=== PATIENT | female | born 1945 | race Caucasian/White ===

== ENCOUNTER → 2017-06-18 | Outpatient (CLI) | payer MEDICARE, SELFPAY | PROVIDERS: Visit Provider Nurse Practitioner Obstetrics & Gynecology | DX: Z12.31 Encounter for screening mammogram for malignant neoplasm of breast (principal) | CPT/HCPCS: 77067; G0202 ==

== ENCOUNTER 2017-08-04 13:00 | Observation (INO) | payer MEDICARE, SELFPAY ==
--- NOTE | 2017-08-04 | CA_ITS ---
PROCEDURE: 2-D M-mode and color Doppler study INDICATIONS FOR THE TEST: Chest pain COPD Heart Murmur+ Tobacco Smoking Palpitations Fatigue Syncope+ Edema Hypertension Diabetes Mellitus Rheumatic Fever SOB+PIMENTEL+Obesity+Hyperlipidemia+ Family History HD+ Additional History syncope PATIENT INFORMATION HEIGHT: 70 WEIGHT: 270 GENDER: Female B/P: 142/84 2-D/M-MODE INTERPRETATION: 2-D MEASUREMENTS OBSERVED VALUES IN CMS Right Ventricular Dimension (RVDd) 2.8 Interventricular Septum (Thickness)(IVsd) 1.2 Left Ventricular Internal Dimensions(LVIDd) 5.3 Left Ventricular Posterior Wall (Thickness)(LVPWd) 1.1 Aortic Root 3.4 Aortic Cusp Separation 2.1 Left Atrial Dimensions (LAD) 4.2 2D 1. Technically difficult study because of the patient's factor and poor acoustic windows 2. Left atrium is mildly enlarged, left ventricle is normal size, there is mild concentric left ventricular hypertrophy, visually estimated ejection fraction 50% with no obvious regional wall motion abnormality. 3. The right atrium is normal size, right ventricle is mildly enlarged with normal contractility. 4. The mitral and tricuspid valvular leaflets are minimally thickened. 5. The pulmonic valve is poorly visualized. 6. No significant pericardial effusion noted. DOPPLER INTERROGATION: Doppler interrogation of the aortic, mitral and tricuspid valvular presence of mild mitral and tricuspid regurgitation, tricuspid and jet velocity insufficient for calculation of the right ventricular systolic pressure, grade 1 diastolic dysfunction seen with tissue Doppler evidence of raised left atrial pressure. CONCLUSION: 1. Mildly enlarged left atrium, normal left ventricular size, visually estimated ejection fraction 50% with no obvious regional wall motion abnormality, there is mild concentric left ventricular hypertrophy present. Grade 1 diastolic dysfunction seen with tissue Doppler evidence of raised left atrial pressure. 2. Mild mitral and tricuspid regurgitation 3. No significant pericardial effusion noted.
[2017-08-04 13:04] VITALS: BP 136/73; PULSE 72; RESP 18; TEMP 36.8; O2SAT 95; BMI 38.7
--- NOTE | 2017-08-04 13:38 | HMH.EDSYNC ---
ED Disposition Clinical Impression: Syncope Qualifiers: Syncope type: unspecified Qualified Code(s): R55 - Syncope and collapse Disposition: Admitted As Inpatient Condition on Discharge: Good Time of Disposition: 16:09 - Critical Care Critical Care Time: No Attestation: On 08/04/17, the high probability of a clinically significant, sudden or life threatening deterioration of the following system(s) required my full and direct attention, intervention and personal management. The time I documented below is in addition to time spent performing reported procedures but includes the following listed in this critical care notation. Total Critical Care Time: 45 Vital system(s) involved:: Circulatory Failure, Central Nervous System My critical care processes included: Assessment & monitoring of V/S, Initial and Re-exams, Data Review/Interpretation, Coordinating Care, Medication Orders and management, Documentation Medical Decision Making - Medical Records Medical records reviewed: Yes: I reviewed the patient's medical records. Vital Signs: 08/04/17 13:04 08/04/17 15:01 08/04/17 16:36 Temperature 98.2 F 98.1 F Temperature Source Oral Oral Pulse Rate [Right Radial] 72 67 64 Respiratory Rate 18 20 18 Blood Pressure [Right Arm] 136/73 136/71 141/70 Blood Pressure Mean [Right Arm] 94 92 93 Blood Pressure Source [Right Arm] Automatic Cuff Automatic Cuff Blood Pressure Position [Right Arm] Supine Sitting 02 Sat by Pulse Oximetry 95 95 93 L Oxygen Delivery Method Room Air Room Air Room Air - Lab Data Lab results reviewed: Yes: I reviewed the patient's lab results. Lab Results 08/04/17 13:55: WBC 4.0 L, RBC 4.60, Hgb 13.5, Hct 41.8, MCV 91.0, MCH 29.3, MCHC 32.2, RDW 13.3, Plt Count 208, MPV 6.8 L, Neut % (Auto) 69.5, Lymph % (Auto) 17.4, [place] % (Auto) 8.8, Eos % (Auto) 3.9, Baso % (Auto) 0.5, Neut # (Auto) 2.8, Lymph # (Auto) 0.7, [place] # (Auto) 0.4, Eos # (Auto) 0.2, Baso # (Auto) 0.0 08/04/17 13:55: Sodium 143, Potassium 3.6, Chloride 106, Carbon Dioxide 29, Anion Gap 11.6, BUN 10, Creatinine 0.95, Estimated Creat Clear 100, Estimated GFR 58 L, Est GFR ( Amer) 70, Glucose 88, Calcium 8.5, Total Bilirubin 0.3, AST 28, ALT 29, Alkaline Phosphatase 80, Total Creatine Kinase 67, CK-MB (CK-2) 1.1, CK-MB (CK-2) Rel Index 1.6, Troponin I < 0.02, Total Protein 7.4, Albumin 3.7, Globulin 3.7 H, Albumin/Globulin Ratio 1.0 L, TSH 0.91 08/04/17 13:55: D-Dimer 233 08/04/17 13:55: B-Natriuretic Peptide 28 08/04/17 15:55: Urine Color Yellow, Urine Appearance Clear, Urine pH 6.5, Ur Specific [place] 1.015, Urine Protein Negative, Urine Glucose (UA) Negative, Urine Ketones Negative, Urine Blood Negative, Urine Nitrate Positive, Urine Bilirubin Negative, Urine Urobilinogen 0.2, Ur Leukocyte Esterase Negative, Urine RBC Occasional, Urine WBC 3-5, Ur Squamous Epith Cells 5-10, Urine Bacteria 4+ Result diagrams: 08/04/17 13:55 08/04/17 13:55 Orders (Tests/Meds): ED MEDICATIONS Discontinued Medications Generic Name Dose Route Start Last Admin Trade Name Freq PRN Reason Stop Dose Admin Sodium Chloride 1,000 mls @ 999 mls/hr 08/04/17 13:45 08/04/17 15:17 Sod Chloride 0.9% 1000ml Bag IV 08/04/17 14:45 999 mls/hr .[id number] GEORGETTE Administration ORDERS Category Date Time Status Urine Culture Stat Micro 08/04/17 15:55 Received - Radiology Data #1 Image(s): Chest Image Reviewed: Yes I reviewed the patient's radiology results Preliminary Findings: Normal/NAD - CT Data CT Scan: Head Time Received: 15:[address] Reviewed: Yes: I have reviewed the patient's CT results Preliminary Findings: Normal/NAD - ECG Data Tracing #1 I reviewed this ECG and interpreted as documented below: ECG normal with no acute: arrhythmias, ischemia, conduction abnormalities, chamber hypertrophy Normal Sinus Rhythm: Yes - Physician Consults Physician Consulted: Dr Larkin Time: 16:00 Reason -: Admission, Pt condition
--- NOTE | 2017-08-04 13:55 | CT_ITS ---
CT head/brain wo con HISTORY: Dizziness and syncope ITS.REASON: SYNCOPE ORDERING PHYSICIAN: Mukul Allen MD PATIENT AGE: 71 years COMPARISON: None TECHNIQUE: Axial images obtained without contrast. Brain and bone windows reviewed. FINDINGS: No midline shift, mass effect, intracranial hemorrhage, hydrocephalus, or extra-axial fluid collection is evident. There are involutional changes of age with mild brain volume loss and periventricular ischemic gliotic change. The calvarium has an unremarkable appearance. No mastoid effusion. Mild mucosal thickening left maxillary sinus. IMPRESSION: No acute intracranial findings.
[2017-08-04 14:09] LABS: Basophils % 0.5 % (0.1-2.0); Eosinophils # 0.2 K/mm3 (0.0-0.4); Eosinophils % 3.9 % (0.1-12.0); Hematocrit 41.8 % (37.0-47.0); Hemoglobin 13.5 g/dL (12.2-16.2); Lymphocytes # 0.7 K/mm3 (0.7-4.5); Lymphocytes % 17.4 K/mm3 (10-50); Mean Corpuscular HGB Conc 32.2 g/dL (31.8-35.4); Mean Corpuscular Hemoglobin 29.3 pg (27.0-31.2); Mean Platelet Volume 6.8 fl (7.4-10.4); Monocytes # 0.4 K/mm3 (0.1-1.0); Monocytes % 8.8 % (1.7-9.3); Neutrophils # 2.8 K/mm3 (1.8-7.8); Neutrophils % 69.5 % (37.0-80.0); Platelet Count 208 K/mm3 (142-424); Red Cell Distribution Width 13.3 % (11.5-17.5)
[2017-08-04 14:34] LABS: D-Dimer 233 (0-400)
[2017-08-04 14:38] LABS: Alanine Aminotransferase 29 U/L (12-78); Albumin Level 3.7 gm/dL (3.4-5.0); Alkaline Phosphatase 80 U/L (46-116); Anion Gap 11.6 mEq/L (5-15); Aspartate Amino Transferase 28 U/L (15-37); Bilirubin,Total 0.3 mg/dL (0.2-1.0); Blood Urea Nitrogen 10 mg/dL (7-18); CKMB Relative Index 1.6 U/L (0-4.0); Calcium 8.5 mg/dL (8.5-10.1); Carbon Dioxide 29 mmol/L (21.0-32.0); Chloride 106 mmol/L (98-107); Creatine Kinase 67 U/L (26-192); Creatine Kinase MB 1.1 mg/ml (0.0-3.6); Creatinine Clearance Estimated 100 mL/min (0-300); Creatinine,Serum 0.95 mg/dL (0.55-1.02); Estimated Glomerular Filt Rate 58 ml/min (>60); GFR (African American) 70 ML/MIN (>60); Globulin 3.7 gm/dl (1.3-3.2); Glucose 88 mg/dL (74-106); Potassium 3.6 mmoL/L (3.5-5.1); Sodium 143 mmol/L (136-145); Thyroid Stimulating Hormone 0.91 uIU/ml (0.358-3.740); Total Protein,Serum 7.4 gm/dL (6.4-8.2); Troponin I < 0.02 ng/ml (0.00-0.06)
[2017-08-04 15:01] VITALS: BP 136/71; PULSE 67; RESP 20; O2SAT 95
[2017-08-04 16:09] LABS: Microscopic, Urine URINE MICROSCOPIC (MICROSCOPIC)
[2017-08-04 16:12] LABS: Appearance,Urine CLEAR (Clear); Bilirubin,Urine Negative (Negative); Blood, Urine Negative (Negative); Color,Urine YELLOW (Yellow); Glucose,Urine (UA) Negative (Negative); Ketones,Urine Negative (Negative); Leukocyte Esterase,Urine Negative (Negative); Nitrate,Urine POSITIVE (Negative); PH,Urine 6.5 (5.0-8.5); Protein,Urine Negative (Negative); Specific Gravity, Urine 1.015 (1.005-1.030); Urobilinogen,Urine 0.2 EU/dl (0.2)
[2017-08-04 16:36] VITALS: BP 141/70; PULSE 64; RESP 18; TEMP 36.7; O2SAT 93; BMI 39.7
[2017-08-04 16:47] LABS: Bacteria,Urine 4+ /lpf; RBC,Urine Occasional #/hpf (0-3)
[2017-08-04 18:57] LABS: CKMB Relative Index 2.1 U/L (0-4.0); Creatine Kinase 72 U/L (26-192); Creatine Kinase MB 1.5 mg/ml (0.0-3.6); Troponin I < 0.02 ng/ml (0.00-0.06)
[2017-08-04 20:00] VITALS: BP 150/80; PULSE 71; RESP 20; TEMP 36.6; O2SAT 96
[2017-08-04 20:54] VITALS: BP 150/80; PULSE 71; RESP 14; TEMP 36.6
[2017-08-05] VITALS (28 sets, daily range): BP systolic 114–180; BP diastolic 59–104; PULSE 55–91; RESP 16–20; TEMP 36.6–36.9; O2SAT 93–100
--- NOTE | 2017-08-05 | IR_ITS ---
CARDIAC CATHETERIZATION DATE OF CATHETERIZATION:08/05/2017 1:07 PM PROCEDURES: 1. Right heart catheterization 2. Left heart catheterization 3. Left ventriculogram 4. Selective coronary angiogram INDICATION FOR TEST: 1. Congestive heart failure 2. Atrial fibrillation 3. Unstable angina Informed consent was obtained prior to the procedure. COMPLICATIONS: None ESTIMATED BLOOD LOSS: Less than 10 ml. TECHNIQUE: One percent lidocaine was used to anesthetize the right groin. The right femoral artery was accessed via the Seldinger technique. A 4-Venezuelan and 7 macanese sheath was placed in the right femoral artery and vein respectfully. The JR-4 and JL-4 catheter was also used to perform left heart catheterization, left ventriculography and selective coronary angiogram. At the end of the procedure the patient was transferred to the post-op holding area in stable condition for arterial sheath removal. ANGIOGRAPHIC RESULTS: 1. The left main artery normal 2. The left anterior descending artery has normal 3. The circumflex artery is non dominant and has normal 4. The right coronary artery normal 5. The BAGLEY ventriculogram reveals normal 65% The left ventricular end-diastolic pressure 25 mmHg HEMODYNAMICS: Right atrial pressure is 15 mm Hg. Pulmonary arterial pressure is 35/25 mm Hg. Pulmonary artery occlusion pressure is 23 mm Hg. SATURATIONS: RA is 83 %. PA is 83 %. IMPRESSION: 1. Normal coronary arteries 2. Normal ejection fraction 3. Mild pulmonary hypertension 4. Diastolic dysfunction 5. Biventricular congestive heart failure PLAN: 1. Diuresis as needed 2. Treatment of atrial fibrillation 3. Technical angulation for been high chads score
--- NOTE | 2017-08-05 07:28 | P.CONPHA_ITS ---
[facility] Pharmacy VTE Monitoring - Patient Demographics Admission date: 08/04/17 Report Date: 08/05/17 Time: 07:26 Allergies/Adverse Reactions: Patient Allergies erythromycin base Allergy (Mild, Verified 07/10/17 13:32) promethazine Allergy (Mild, Verified 07/10/17 13:32) Height: 1.78 m Weight: 125.645 kg Patient Problems: Current Active Problems Syncope (Acute) - VTE Risk Labs: VTE Related Lab Results Hgb 13.5 g/dL (12.2-16.2) 08/04/17 13:55 Hct 41.8 % (37.0-47.0) 08/04/17 13:55 Plt Count 208 K/mm3 (142-424) 08/04/17 13:55 BUN 10 mg/dL (7-18) 08/04/17 13:55 Creatinine 0.95 mg/dL (0.55-1.02) 08/04/17 13:55 Estimated Creat Clear 100 mL/min (0-300) 08/04/17 13:55 VTE Score: 3 VTE Risk Level: Low Risk Clinical Trial Participant: Yes - Prophylaxis VTE Prophylaxis Ordered?: Yes Types of VTE Prophylaxis: TEDS Knee High
--- NOTE | 2017-08-05 08:51 | HMH.HP ---
*Admission Date: 08/04/17 <WalterJennifer 08/05/17 09:21> *Chief complaint: Snycope <WalterJennifer 08/05/17 09:21> *History of present illness: Ms. Guerra is a 71-year-old female history of hypothyroidism, Sjogren syndrome and osteoarthritis who had a syncopal episode when at a restaurant eating lunch yesterday. Friends stated that she had no seizure activity but was out for about 10 minutes. She had no loss of bowel or bladder function. Patient denied shortness of breath and chest pain before, during or after the syncopal episode. She did state that she had a headache earlier in the morning. She denied nausea, vomiting, diarrhea, fever or any other upper respiratory symptoms. She was brought to [facility] emergency room via ambulance Evaluation in the emergency room CT of the head was found to be normal. She was admitted for further evaluation and treatment Patient states that she has had fainting episodes in the past mostly as a child. She has had no previous workup for these <Jennifer Walter 08/05/17 09:21> [facility] History Medical History: Reports:: Deep Vein Thrombosis, Osteoporosis Denies:: Anxiety, Arrhythmia, Atherosclerotic Heart Disease, Cancer, Cardiomyopathy, Congestive Heart Failure, Chronic Obstructive Pulmonary Disease (COPD), Coronary Artery Disease, Cerebrovascular Accident, Diabetes Mellitus Type 1, Diabetes Mellitus Type 2, Gastroesophageal Reflux Disease(GERD), Heart Murmur, Home Oxygen, Hypertension, Lung Disease, MRSA, Palpitations, Peripheral Vascular Disease, Renal Disease, Seizures, Supraventricular Tachycardia <Jennifer Walter 08/05/17 09:21> Other Medical History: Reports: Arthritis, Hypothyroidism, Thyroid Disease <Jennifer Walter 08/05/17 09:21> Comment: Sjogren syndrome, goiter, restless leg syndrome; has had pneumonia several times <Jennifer Walter 08/05/17 09:21> Other Surgeries: Yes: Diagnostic Lap, Hysterectomy-Partial <Jennifer Walter 08/05/17 09:21> Amputation: No <Jennifer Walter 08/05/17 09:21> Fractures: No <Jennifer Walter 08/05/17 09:21> - *Social History Educational Level: Completed High School <Jennifer Walter 08/05/17 09:21> Smoking Status: Never smoker <Jennifer Walter 08/05/17 09:21> Alcohol Intake: never <Jennifer Walter 08/05/17 09:21> Occupational Status: retired <Jennifer Walter 08/05/17 09:21> Housing: house <Jennifer Walter 08/05/17 09:21> Household Members: spouse <Jennifer Walter 08/05/17 09:21> - Psychiatric History Expresses thoughts of harming self/others: None <Jennifer Walter 08/05/17 09:21> Suicide Plan Description: No Plan <Jennifer Walter 08/05/17 09:21> *Family Hx:: Cancer, Coronary Artery Disease, no Diabetes <Jennifer Walter 08/05/17 09:21> Review of Systems - Constitutional Reports headache(s), Denies anorexia, Denies body ache(s), Denies chills, Denies fever(s), Denies lack of energy, Denies weakness <Jennifer Walter 08/05/17 09:21> - Eyes Reports dry eyes, Denies change in vision <Jennifer Walter 08/05/17 09:21> - ENT Reports dry mouth, Reports headache(s), Denies facial pain, Denies sore throat, Denies dizziness <Jennifer Walter 08/05/17 09:21> - *Cardiovascular Reports shortness of breath with activity, Reports fainting, Denies chest pain, Denies excessive sweating, Denies generalized swelling, Denies irregular heart rhythm, Denies leg swelling, Denies fast heart rate <Jennifer Walter 08/05/17 09:21> - *Respiratory Denies chest congestion, Denies cough, Denies shortness of breath, Denies coughing up blood, Denies wheezing <Jennifer Walter 08/05/17 09:21> - *Gastrointestinal Reports constipation, Denies abdominal pain, Denies belching, Denies bloating, Denies change in bowel habits, Denies change in stools, Denies heartburn, Denies vomiting blood, Denies nausea, Denies vomiting <WalterJennifer 08/05/17 09:21> - *Musculoskeletal Reports joint pain, Denies body aches <Jennifer Walter - 08/05/17 09:21> - *Neurolog
--- NOTE | 2017-08-05 08:54 | P.HP_ITS ---
*Admission Date: 08/04/17 <WalterJennifer 08/05/17 09:21> *Chief complaint: Snycope <WalterJennifer 08/05/17 09:21> *History of present illness: Ms. Guerra is a 71-year-old female history of hypothyroidism, Sjogren syndrome and osteoarthritis who had a syncopal episode when at a restaurant eating lunch yesterday. Friends stated that she had no seizure activity but was out for about 10 minutes. She had no loss of bowel or bladder function. Patient denied shortness of breath and chest pain before, during or after the syncopal episode. She did state that she had a headache earlier in the morning. She denied nausea, vomiting, diarrhea, fever or any other upper respiratory symptoms. She was brought to [facility] emergency room via ambulance Evaluation in the emergency room CT of the head was found to be normal. She was admitted for further evaluation and treatment Patient states that she has had fainting episodes in the past mostly as a child. She has had no previous workup for these <Jennifer Walter 08/05/17 09:21> [facility] History Medical History: Reports:: Deep Vein Thrombosis, Osteoporosis Denies:: Anxiety, Arrhythmia, Atherosclerotic Heart Disease, Cancer, Cardiomyopathy, Congestive Heart Failure, Chronic Obstructive Pulmonary Disease (COPD), Coronary Artery Disease, Cerebrovascular Accident, Diabetes Mellitus Type 1, Diabetes Mellitus Type 2, Gastroesophageal Reflux Disease(GERD), Heart Murmur, Home Oxygen, Hypertension, Lung Disease, MRSA, Palpitations, Peripheral Vascular Disease, Renal Disease, Seizures, Supraventricular Tachycardia < Jennifer Walter 08/05/17 09:21> Other Medical History: Reports: Arthritis, Hypothyroidism, Thyroid Disease < Jennifer Walter 08/05/17 09:21> Comment: Sjogren syndrome, goiter, restless leg syndrome; has had pneumonia several times <Jennifer Walter 08/05/17 09:21> Other Surgeries: Yes: Diagnostic Lap, Hysterectomy-Partial <Jennifer Walter 09:21> Amputation: No <Jennifer Walter 08/05/17 09:21> Fractures: No <Jennifer Walter 08/05/17 09:21> - *Social History Educational Level: Completed High School <Jenniefr Walter 08/05/17 09:21> Smoking Status: Never smoker <Jennifer Walter 08/05/17 09:21> Alcohol Intake: never <Jennifer Walter 08/05/17 09:21> Occupational Status: retired <Jennifer Walter 08/05/17 09:21> Housing: house <Jennifer Walter 08/05/17 09:21> Household Members: spouse <Jennifer Walter 08/05/17 09:21> - Psychiatric History Expresses thoughts of harming self/others: None <Jennifer Walter 08/05/17 09: 21> Suicide Plan Description: No Plan <Jennifer Walter 08/05/17 09:21> *Family Hx:: Cancer, Coronary Artery Disease, no Diabetes <Jennifer Walter 01/13 09:21> Review of Systems - Constitutional Reports headache(s), Denies anorexia, Denies body ache(s), Denies chills, Denies fever(s), Denies lack of energy, Denies weakness <WalterJennifer 08/05 09:21> - Eyes Reports dry eyes, Denies change in vision <Jennifer Walter 08/05/17 09:21> - ENT Reports dry mouth, Reports headache(s), Denies facial pain, Denies sore throat, Denies dizziness <Jennifer Walter 08/05/17 09:21> - *Cardiovascular Reports shortness of breath with activity, Reports fainting, Denies chest pain, Denies excessive sweating, Denies generalized swelling, Denies irregular heart rhythm, Denies leg swelling, Denies fast heart rate <Jennifer Walter 08/05/17 09:21> - *Respiratory Denies chest congestion, Denies cough, Denies shortness of breath, Denies coughing up blood, Denies wheezing <Jennifer Walter 08/05/17 09:21> - *Gastrointestinal Reports constipation, Denies abdominal p
--- NOTE | 2017-08-05 09:19 | HMH.CARDCON2 ---
History of Present Illness Consult date: 08/05/17 Requesting physician: Tyson Bhakta Chief complaint: passed out History of present illness: 71-year-old white female with history of hypertension and Sjogren's syndrome admitted for episode of syncope yesterday patient was at a local restaurant and after eating she developed sudden lightheadedness and dizziness to the point that she laid her head down and then states she apparently passed out. Reportedly off for about 10 minutes all total. She did have some vomiting afterward. Patient denies any palpitations or chest pains prior to her episode of passing out. She relates a long history of intermittent episodes of this dating back to childhood. She seems to equate them with long periods of not eating or needing something sweet to prevent it from occurring. She has never had any workup for this in the past. Of note she has had some declining exertional capacity over the last couple years with associated discomfort in the upper back and neck area with exertion. Patient denies any history of diabetes or tobacco use. She is on low-dose hydrochlorothiazide for her hypertension. 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 EKG here shows sinus rhythm without acute changes. Troponins have returned normal. Cardiology consulted for evaluation recommendations. Review of Systems - ENT Reports dry mouth - *Respiratory Reports cough, Reports shortness of breath with activity - *Musculoskeletal Reports stiffness - *Neurologic Reports headache(s), Reports fainting, Reports other (Syncope), Denies abnormal walking, Denies abnormal hearing, Denies abnormal movements, Denies abnormal speech, Denies behavioral changes, Denies confusion, Denies seizure-like activity, Denies dizziness, Denies tingling/numbness/burning sensations, Denies restless legs, Denies seizure-like activity, Denies tremor(s), Denies dizziness, Denies weakness [facility] History Medical History: Reports:: Deep Vein Thrombosis, Osteoporosis Denies:: Anxiety, Arrhythmia, Atherosclerotic Heart Disease, Cancer, Cardiomyopathy, Congestive Heart Failure, Chronic Obstructive Pulmonary Disease (COPD), Coronary Artery Disease, Cerebrovascular Accident, Diabetes Mellitus Type 1, Diabetes Mellitus Type 2, Gastroesophageal Reflux Disease(GERD), Heart Murmur, Home Oxygen, Hypertension, Lung Disease, MRSA, Palpitations, Peripheral Vascular Disease, Renal Disease, Seizures, Supraventricular Tachycardia Other Medical History: Reports: Arthritis, Hypothyroidism, Osteoporosis, Thyroid Disease Other Surgeries: Yes: Diagnostic Lap, Hysterectomy-Partial Amputation: No Fractures: No - *Social History Educational Level: Completed High School Smoking Status: Never smoker Alcohol Intake: never Occupational Status: retired Housing: house Household Members: spouse - Psychiatric History Expresses thoughts of harming self/others: None Suicide Plan Description: No Plan Pschychiatric History:: Denies:: Anxiety *Family Hx:: Cancer, Coronary Artery Disease, no Diabetes Meds Home Medications Medication Instructions Recorded Confirmed Type Hydroxychloroquine Sulfate 200 mg PO DAILY 08/05/17 08/05/17 History [Plaquenil] Levothyroxine Sodium 175 mcg PO DAILY 08/05/17 08/05/17 History [Levothyroxine 175mcg (0.175mg) Tab] Mirabegron [Myrbetriq] 25 mg PO DAILY 08/05/17 08/05/17 History Sertraline HCl [Zoloft 100mg 100 mg PO DAILY 08/05/17 08/05/17 History tablet] hydroCHLOROthiazide [HCTZ 25mg 12.5 mg PO DAILY 08/05/17 08/05/17 History tab] Allergies Allergy/AdvReac Type Severity Reaction Status Date / Time erythromycin base Allergy Mild Verified 07/10/17 13:32 promethazine Allergy Mild Verified 07/10/17 13:32 Exam Vital signs and Labs for Last 24 Hours:
--- NOTE | 2017-08-05 09:23 | P.CONS_ITS ---
History of Present Illness Consult date: 08/05/17 Requesting physician: Tyson Bhakta Chief complaint: passed out History of present illness: 71-year-old white female with history of hypertension and Sjogren's syndrome admitted for episode of syncope yesterday patient was at a local restaurant and after eating she developed sudden lightheadedness and dizziness to the point that she laid her head down and then states she apparently passed out. Reportedly off for about 10 minutes all total. She did have some vomiting afterward. Patient denies any palpitations or chest pains prior to her episode of passing out. She relates a long history of intermittent episodes of this dating back to childhood. She seems to equate them with long periods of not eating or needing something sweet to prevent it from occurring. She has never had any workup for this in the past. Of note she has had some declining exertional capacity over the last couple years with associated discomfort in the upper back and neck area with exertion. Patient denies any history of diabetes or tobacco use. She is on low-dose hydrochlorothiazide for her hypertension. 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 EKG here shows sinus rhythm without acute changes. Troponins have returned normal. Cardiology consulted for evaluation recommendations. Review of Systems - ENT Reports dry mouth - *Respiratory Reports cough, Reports shortness of breath with activity - *Musculoskeletal Reports stiffness - *Neurologic Reports headache(s), Reports fainting, Reports other (Syncope), Denies abnormal walking, Denies abnormal hearing, Denies abnormal movements, Denies abnormal speech, Denies behavioral changes, Denies confusion, Denies seizure-like activity, Denies dizziness, Denies tingling/numbness/burning sensations, Denies restless legs, Denies seizure-like activity, Denies tremor(s), Denies dizziness , Denies weakness [facility] History Medical History: Reports:: Deep Vein Thrombosis, Osteoporosis Denies:: Anxiety, Arrhythmia, Atherosclerotic Heart Disease, Cancer, Cardiomyopathy, Congestive Heart Failure, Chronic Obstructive Pulmonary Disease (COPD), Coronary Artery Disease, Cerebrovascular Accident, Diabetes Mellitus Type 1, Diabetes Mellitus Type 2, Gastroesophageal Reflux Disease(GERD), Heart Murmur, Home Oxygen, Hypertension, Lung Disease, MRSA, Palpitations, Peripheral Vascular Disease, Renal Disease, Seizures, Supraventricular Tachycardia Other Medical History: Reports: Arthritis, Hypothyroidism, Osteoporosis, Thyroid Disease Other Surgeries: Yes: Diagnostic Lap, Hysterectomy-Partial Amputation: No Fractures: No - *Social History Educational Level: Completed High School Smoking Status: Never smoker Alcohol Intake: never Occupational Status: retired Housing: house Household Members: spouse - Psychiatric History Expresses thoughts of harming self/others: None Suicide Plan Description: No Plan Pschychiatric History:: Denies:: Anxiety *Family Hx:: Cancer, Coronary Artery Disease, no Diabetes Meds Home Medications Medication Instructions Recorded Confirmed Type Hydroxychloroquine Sulfate 200 mg PO DAILY 08/05/17 08/05/17 History [Plaquenil] Levothyroxine Sodium 175 mcg PO DAILY 08/05/17 08/05/17 History [Levothyroxine 175mcg (0.175mg) Tab] Mirabegron [Myrbetriq] 25 mg PO DAILY 08/05/17 08/05/17 History Sertraline HCl [Zolof
--- NOTE | 2017-08-05 11:53 | PC.NURSE ---
PT IS IN CATH AT THIS TIME.
--- NOTE | 2017-08-05 13:42 | PC.NURSE ---
Pt left floor at
--- NOTE | 2017-08-05 13:43 | PC.NURSE ---
Pt is back on floor after having procedure in bobcat driver/labor. Pt is a/o, vs stable, no complaints voiced to nurse. Pt's IJ and wrist site are c/d/i. Nurse was told that no interventions were needed during procedure. Pt is in bed, call light within reach, visitors at bedside. Will continue to [facility].
[2017-08-05 13:48] LABS: CATHL Arterial O2 SAT 83 % (90-100); CATHL Venous O2 SAT 83 % (75-80)
--- NOTE | 2017-08-05 19:20 | PC.NURSE ---
PT FULL CODE, REPORT FROM ANIKA
--- NOTE | 2017-08-05 19:30 | PC.NURSE ---
Pt tolerated well this shift, pt has had no complaints. Post op VS being monitored, pt tolerating well. IJ and right wrist sites look well, tegaderm and 2x2s in place, CDI. Pt is in bed, call light within reach, will continue to monitor.
[2017-08-06] VITALS: BP 121/64; PULSE 60; RESP 20; TEMP 37.1; O2SAT 93
[2017-08-06 02:00] VITALS: PULSE 67
[2017-08-06 04:00] VITALS: BP 116/58; PULSE 65; PULSE 69; RESP 20; TEMP 36.8; O2SAT 90
--- NOTE | 2017-08-06 05:07 | PC.NURSE ---
PT ALERT AND ORIENTED. SLEPT MOST ALL OF SHIFT OF THIS TIME. NO C/O PAIN OR DISCOMFORT REPORTED. NO SYNCOPE EPISODES. IV SECURE AND PATENT, SALINE LOCKED. DRESSING ON JUGULAR PLACED YESTERDAY IN CARDIAC CATH, CAME MOST ALL WAY OFF, REST REMOVED. NOTHING SEEN. AREA INTACT ON DRAINAGE. RT RADIAL STILL ON ARM BOARD TO ASSIST PT IN REMEMBERING TO LIMIT USE. NO AM LABS ORDERED. PT STABLE. WILL CONTINUE TO MONITOR. REPORT TO BE GIVEN TO ONCOMING NURSE.
[2017-08-06 07:11] LABS: Anion Gap 11.1 mEq/L (5-15); Blood Urea Nitrogen 19 mg/dL (7-18); Carbon Dioxide 30 mmol/L (21.0-32.0); Chloride 106 mmol/L (98-107); Creatinine Clearance Estimated 98 mL/min (0-300); Creatinine,Serum 1.04 mg/dL (0.55-1.02); Estimated Glomerular Filt Rate 52 ml/min (>60); GFR (African American) 63 ML/MIN (>60); Glucose 89 mg/dL (74-106); Potassium 4.1 mmoL/L (3.5-5.1); Sodium 143 mmol/L (136-145)
[2017-08-06 07:40] VITALS: BP 128/77; PULSE 72; RESP 20; TEMP 36.8; O2SAT 96
[2017-08-06 08:00] VITALS: PULSE 90
--- NOTE | 2017-08-06 08:12 | HMH.ACPN2 ---
<Marcelina Vanegas - Last Filed: 08/06/17 08:12> Internal Medicine - PN: Subj *Date: 08/06/17 *Time: 08:12 Interval history: Patient has done well throughout the night. She states she has not felt any heart palpitations. She slept great and ate all of her breakfast this morning. Her heart cath showed normal coronaries but elevated right heart pressures. She was started on lasix for diastolic dysfunction/pulmonary hypertension along with metoprolol and Xarelto for the paroxysmal A. fib/flutter by cardiology. Exam Vital signs and Labs for Last 24 Hours: Temp Pulse Resp BP Pulse Ox 98.2 F 72 20 128/77 96 08/06/17 07:40 08/06/17 07:40 08/06/17 07:40 08/06/17 07:40 08/06/17 07:40 Laboratory Results - last 24 hr 08/05/17 13:00: ABG O2 Sat (Measured) 83 L, POC VBG O2 Sat ([place]) 83 H 08/06/17 06:15: Sodium 143, Potassium 4.1, Chloride 106, Carbon Dioxide 30, Anion Gap 11.1, BUN 19 H D, Creatinine 1.04 H, Estimated Creat Clear 98, Estimated GFR 52 L, Est GFR ( Amer) 63, Glucose 89 I & O for Last 24 hours: Intake & Output 08/03/17 08/04/17 08/05/17 08/06/17 11:59 11:59 11:59 11:59 Intake Total 1500 / 1500 Balance 1500 / 1500 Weight 277 lb - Constitutional no acute distress - *Routine Respiratory Exam Present: CTA bilaterally - *Routine Cardiovascular Exam Present: RRR - *Routine Abdominal Exam Present: soft, normoactive bowel sounds. Absent: tenderness - *Routine Extremities Exam Absent: edema Assessment and Plan (1) Syncope Current visit: Yes Status: Acute Qualifiers: Syncope type: unspecified Qualified Code(s): R55 - Syncope and collapse Category: Medical Code(s): R55 - Syncope and collapse (2) Sjogrens syndrome Current visit: Yes Status: Chronic Category: Medical Code(s): M35.00 - Sicca syndrome, unspecified (3) Hypothyroidism Current visit: Yes Status: Chronic Category: Medical Code(s): E03.9 - Hypothyroidism, unspecified (4) Hypertension Current visit: Yes Status: Acute Category: Medical Code(s): I10 - Essential (primary) hypertension (5) Obesity (BMI 35.0-39.9 without comorbidity) Current visit: Yes Status: Acute Category: Medical Code(s): E66.9 - Obesity, unspecified (6) Paroxysmal SVT (supraventricular tachycardia) Current visit: Yes Status: Acute Category: Medical Code(s): I47.1 - Supraventricular tachycardia - Assessment and plan all Dx Assessment and Plan for all problems:: Patient doing well today. Cardiology has not seen patient yet. Will discuss further care with Dr. Bhakta. <Tyson Bhakta - Last Filed: 08/06/17 08:39> Internal Medicine - PN: Subj *Date: 08/06/17 *Time: 08:38 Exam Vital signs and Labs for Last 24 Hours: Temp Pulse Resp BP Pulse Ox 98.2 F 72 20 128/77 96 08/06/17 07:40 08/06/17 07:40 08/06/17 07:40 08/06/17 07:40 08/06/17 07:40 Laboratory Results - last 24 hr 08/05/17 13:00: ABG O2 Sat (Measured) 83 L, POC VBG O2 Sat ([place]) 83 H 08/06/17 06:15: Sodium 143, Potassium 4.1, Chloride 106, Carbon Dioxide 30, Anion Gap 11.1, BUN 19 H D, Creatinine 1.04 H, Estimated Creat Clear 98, Estimated GFR 52 L, Est GFR ( Amer) 63, Glucose 89 I & O for Last 24 hours: Intake & Output 08/03/17 08/04/17 08/05/17 08/06/17 11:59 11:59 11:59 11:59 Intake Total 1500 / 1500 Balance 1500 / 1500 Weight 277 lb Assessment and Plan (1) Syncope Current visit: Yes Status: Acute Qualifiers: Syncope type: unspecified Qualified Code(s): R55 - Syncope and collapse Category: Medical Code(s): R55 - Syncope and collapse (2) Sjogrens syndrome Current visit: Yes Status: Chronic Category: Medical Code(s): M35.00 - Sicca syndrome, unspecified (3) Hypothyroidism Current visit: Yes Status: Chronic Category: Medical Code(s): E03.9 - Hypothyroidism, unspecified (4) Hypertension Current visit: Yes S
--- NOTE | 2017-08-06 09:42 | P.PN_ITS ---
Subjective Date: 08/06/17 Time: 08:45 Principal diagnosis: Syncope Interval history: 71 yo WF in bed in NAD. Tolerating new meds. Ready to go home. No further episodes of syncope. No further arrhythmias on telemetry. Review of Systems - *Cardiovascular Denies chest pain - *Respiratory Denies shortness of breath - *Neurologic Reports headache(s), Reports fainting, Reports other (Syncope), Denies abnormal walking, Denies abnormal hearing, Denies abnormal movements, Denies abnormal speech, Denies behavioral changes, Denies confusion, Denies seizure-like activity, Denies dizziness, Denies tingling/numbness/burning sensations, Denies restless legs, Denies seizure-like activity, Denies tremor(s), Denies dizziness , Denies weakness Meds Home Medications Medication Instructions Recorded Confirmed Type Hydroxychloroquine Sulfate 200 mg PO DAILY 08/05/17 08/05/17 History [Plaquenil] Levothyroxine Sodium 175 mcg PO DAILY 08/05/17 08/05/17 History [Levothyroxine 175mcg (0.175mg) Tab] Mirabegron [Myrbetriq] 25 mg PO DAILY 08/05/17 08/05/17 History Sertraline HCl [Zoloft 100mg 100 mg PO DAILY 08/05/17 08/05/17 History tablet] hydroCHLOROthiazide [HCTZ 25mg 12.5 mg PO DAILY 08/05/17 08/05/17 History tab] Allergies Allergy/AdvReac Type Severity Reaction Status Date / Time erythromycin base Allergy Mild Verified 07/10/17 13:32 promethazine Allergy Mild Verified 07/10/17 13:32 Exam Vital signs and Labs for Last 24 Hours: Temp Pulse Resp BP Pulse Ox 98.2 F 72 20 128/77 96 08/06/17 07:40 08/06/17 07:40 08/06/17 07:40 08/06/17 07:40 08/06/17 07:40 Laboratory Results - last 24 hr 08/05/17 13:00: ABG O2 Sat (Measured) 83 L, POC VBG O2 Sat ([place]) 83 H 08/06/17 06:15: Sodium 143, Potassium 4.1, Chloride 106, Carbon Dioxide 30, Anion Gap 11.1, BUN 19 H D, Creatinine 1.04 H, Estimated Creat Clear 98, Estimated GFR 52 L, Est GFR ( Amer) 63, Glucose 89 I & O for Last 24 hours: Intake & Output 08/03/17 08/04/17 08/05/17 08/06/17 11:59 11:59 11:59 11:59 Intake Total 1500 / 1500 Balance 1500 / 1500 Weight 277 lb - *Routine Respiratory Exam Present: CTA bilaterally - *Routine Cardiovascular Exam Present: RRR Plan - Patient/Caregiver Discharge Instructions Additional Instructions: OK for discharge home on metoprolol and Xarelto. Follow up next week. Patient Instructions: DI for Atrial Fibrillation, DI for Urinary Tract Infection (UTI) - Follow Up Plan Follow up with: Tyson Bhakta MD [Primary Care Provider] - 2 weeks Ky Maria MD [Staff Physician] - 1 week
--- NOTE | 2017-08-11 14:43 | HMH.DCSUM ---
General - General Admission date: 08/04/17 Discharge date: 08/06/17 HPI HPI: Ms. Guerra is a 71-year-old female history of hypothyroidism, Sjogren syndrome and osteoarthritis who had a syncopal episode when at a restaurant eating lunch yesterday. Friends stated that she had no seizure activity but was out for about 10 minutes. She had no loss of bowel or bladder function. Patient denied shortness of breath and chest pain before, during or after the syncopal episode. She did state that she had a headache earlier in the morning. She denied nausea, vomiting, diarrhea, fever or any other upper respiratory symptoms. She was brought to [facility] emergency room via ambulance Evaluation in the emergency room CT of the head was found to be normal. She was admitted for further evaluation and treatment. Patient states that she has had fainting episodes in the past mostly as a child. She has had no previous workup for these Objective Vital signs: Temp Pulse Resp BP Pulse Ox 98.2 F 90 20 128/77 96 08/06/17 07:40 08/06/17 08:00 08/06/17 07:40 08/06/17 07:40 08/06/17 07:40 Narrative: - Constitutional no acute distress Comments: Conversant - *Routine HEENT Exam Head: Present: normocephalic, atraumatic. Absent: tenderness of temporal artery, facial swelling Eye: Present: EOMI, PERRL, normal accommodation. Absent: scleral injection, conjunctivae pink ENT: Present: mucous membranes dry. Absent: dentition normal - *Routine Neck Exam Present: supple, full ROM, tenderness (Right posterior). Absent: carotid bruit, lymphadenopathy, thyromegaly, swelling - *Routine Respiratory Exam Present: CTA bilaterally (A and P) - *Routine Cardiovascular Exam Present: RRR. Absent: murmur, gallop - *Routine Abdominal Exam Present: soft, normoactive bowel sounds. Absent: tenderness, distended, guarding - *Routine Extremities Exam Present: pulses intact. Absent: edema, calf tenderness, tenderness - *Routine Neurological Exam Present: alert, oriented X3, CN II-XII intact, moving all extremities, normal tone, normal speech. Absent: sensory deficit, motor deficit, pronator drift, altered mental status - Routine Psychiatric Exam Present: normal affect, normal thought process, cooperative, good insight, good judgment. Absent: depressed, anxious Hospital Course Hospital Course: The patient was placed on telemetry. Cardiology was consulted. The patient's telemetry revealed paroxysmal episodes of NSVT at approximately 150 bpm. In light of the patient's history of syncope and the arrhythmia noted on telemetry, cardiology proceeded with a right and left heart catheterization. Her heart cath showed normal coronaries but elevated right heart pressures. She was started on lasix for diastolic dysfunction/pulmonary hypertension along with metoprolol and Xarelto for the paroxysmal A. fib/flutter in light of CHADS-VASc score of at least 3. She did well throughout the rest of her stay and had no further episodes. She was stable to be discharged home. DS: Diagnosis - Discharge Diagnosis (1) Syncope Status: Acute (2) Atrial fibrillation Status: Acute (3) Sjogrens syndrome Status: Chronic (4) Hypothyroidism Status: Chronic (5) Hypertension Status: Acute (6) Obesity (BMI 35.0-39.9 without comorbidity) Status: Acute Discharge Plan - Patient Discharge Instructions ACTIVITY: Continue current activity DIET: continue same diet Additional Instructions: OK for discharge home on metoprolol and Xarelto. Follow up next week. Patient Instructions: DI for Atrial Fibrillation, DI for Urinary Tract Infection (UTI) - Follow up Plan Follow up with: Tyson Bhakta MD [Primary Care Provider] - 2 weeks Ky Maria MD [Staff Physician] - 1 week Disposition: Home, Self-Skilled Nursing Medications: Home Medications Medication Instructions Rec
--- NOTE | 2017-08-11 14:49 | P.DS_ITS ---
General - General Admission date: 08/04/17 Discharge date: 08/06/17 HPI HPI: Ms. Guerra is a 71-year-old female history of hypothyroidism, Sjogren syndrome and osteoarthritis who had a syncopal episode when at a restaurant eating lunch yesterday. Friends stated that she had no seizure activity but was out for about 10 minutes. She had no loss of bowel or bladder function. Patient denied shortness of breath and chest pain before, during or after the syncopal episode. She did state that she had a headache earlier in the morning. She denied nausea, vomiting, diarrhea, fever or any other upper respiratory symptoms. She was brought to [facility] emergency room via ambulance Evaluation in the emergency room CT of the head was found to be normal. She was admitted for further evaluation and treatment. Patient states that she has had fainting episodes in the past mostly as a child. She has had no previous workup for these Objective Vital signs: Temp Pulse Resp BP Pulse Ox 98.2 F 90 20 128/77 96 08/06/17 07:40 08/06/17 08:00 08/06/17 07:40 08/06/17 07:40 08/06/17 07:40 Narrative: - Constitutional no acute distress Comments: Conversant - *Routine HEENT Exam Head: Present: normocephalic, atraumatic. Absent: tenderness of temporal artery , facial swelling Eye: Present: EOMI, PERRL, normal accommodation. Absent: scleral injection, conjunctivae pink ENT: Present: mucous membranes dry. Absent: dentition normal - *Routine Neck Exam Present: supple, full ROM, tenderness (Right posterior). Absent: carotid bruit , lymphadenopathy, thyromegaly, swelling - *Routine Respiratory Exam Present: CTA bilaterally (A and P) - *Routine Cardiovascular Exam Present: RRR. Absent: murmur, gallop - *Routine Abdominal Exam Present: soft, normoactive bowel sounds. Absent: tenderness, distended, guarding - *Routine Extremities Exam Present: pulses intact. Absent: edema, calf tenderness, tenderness - *Routine Neurological Exam Present: alert, oriented X3, CN II-XII intact, moving all extremities, normal tone, normal speech. Absent: sensory deficit, motor deficit, pronator drift, altered mental status - Routine Psychiatric Exam Present: normal affect, normal thought process, cooperative, good insight, good judgment. Absent: depressed, anxious Hospital Course Hospital Course: The patient was placed on telemetry. Cardiology was consulted. The patient's telemetry revealed paroxysmal episodes of NSVT at approximately 150 bpm. In light of the patient's history of syncope and the arrhythmia noted on telemetry , cardiology proceeded with a right and left heart catheterization. Her heart cath showed normal coronaries but elevated right heart pressures. She was started on lasix for diastolic dysfunction/pulmonary hypertension along with metoprolol and Xarelto for the paroxysmal A. fib/flutter in light of CHADS-VASc score of at least 3. She did well throughout the rest of her stay and had no further episodes. She was stable to be discharged home. DS: Diagnosis - Discharge Diagnosis (1) Syncope Status: Acute (2) Atrial fibrillation Status: Acute (3) Sjogrens syndrome Status: Chronic (4) Hypothyroidism Status: Chronic (5) Hypertension Status: Acute (6) Obesity (BMI 35.0-39.9 without comorbidity) Status: Acute Discharge Plan - Patient Discharge Instructions ACTIVITY: Urvashi
== END 2017-08-06 13:20 | disposition home or self-care (01) ==
LOC: ER 16:09 → 2ND 16:17
PROVIDERS: Internal Medicine; Admitting Provider Family Medicine; Emergency Provider Emergency Medicine; Family Provider Family Medicine; PCP Family Medicine; Visit Provider Family Medicine
DX: I25.110 Atherosclerotic heart disease of native coronary artery with unstable angina pectoris; I48.2 Chronic atrial fibrillation; I50.30 Unspecified diastolic (congestive) heart failure; I10 Essential (primary) hypertension; N39.0 Urinary tract infection, site not specified; E03.9 Hypothyroidism, unspecified; M35.00 Sjogren syndrome, unspecified; I50.82 Biventricular heart failure; I27.20 Pulmonary hypertension, unspecified
CPT/HCPCS: 36415; 70450; 80048; 80053; 81001; 82550; 82553; 82810; 83880; 84443; 84484; 85025; 85378; 87086; 87088; 87186; 93005; 93306; 93460; 96365; 99152; 99153; 99281; 99282; C1725; C1769; C1894; G0378; J1644; Q9967

== ENCOUNTER → 2017-08-13 14:59 | Outpatient (CLI) | payer MEDICARE, SELFPAY | PROVIDERS: PCP Family Medicine; Visit Provider Internal Medicine Cardiovascular Disease | DX: R55 Syncope and collapse (principal); M35.00 Sjogren syndrome, unspecified; E03.9 Hypothyroidism, unspecified; I10 Essential (primary) hypertension; E66.9 Obesity, unspecified; I47.1 Supraventricular tachycardia; N39.0 Urinary tract infection, site not specified; B96.1 Klebsiella pneumoniae [K. pneumoniae] as the cause of diseases classified elsewhere; I48.91 Unspecified atrial fibrillation | CPT/HCPCS: 93225 ==

== ENCOUNTER 2017-08-24 10:08 | Day surgery (SDC) | payer MEDICARE, SELFPAY ==
[2017-08-18 15:58] VITALS: BMI 38.7
[2017-08-24] VITALS (7 sets, daily range): BP systolic 126–150; BP diastolic 45–89; PULSE 66–71; RESP 16–20; TEMP 36.3–36.4; O2SAT 95–98
--- NOTE | 2017-08-24 10:47 | HMH.ANESCL ---
[facility] Anesthesia Checklist - Patient Identification Patient Identification: Arm Band - Structural Data Admitted From: Home Planned Operative Procedure/s: colonoscopy Consent for Planned Operative Procedure(s) Verified: Yes Verified Documents: Surgical Consent, History and Physical - NPO Status Verified Time NPO: 00:00 - Additional verifications Anesthesia Reactions: No - Airway Assessment C-Spine Mobility Assessed: Yes (mp2) TMJ Mobility Assessed: Yes Dentition: Good Dentition - Neurological Assessment Level of Consciousness: Awake, Alert - Anesthesia Plan Anesthesia Risk discussed: Yes Anesthesia Plan: Verified ASA Class: III Anesthesia Type: MAC [facility] Anesthesia HX Medical History: Reports:: Atrial Fibrillation (ON XERALTO- OFF X2 DAYS), Deep Vein Thrombosis, Hyperlipidemia, Hypertension, Osteoporosis Denies:: Anxiety, Arrhythmia, Atherosclerotic Heart Disease, Cancer, Cardiomyopathy, Congestive Heart Failure, Chronic Obstructive Pulmonary Disease (COPD), Coronary Artery Disease, Cerebrovascular Accident, Diabetes Mellitus Type 1, Diabetes Mellitus Type 2, Gastroesophageal Reflux Disease(GERD), Heart Murmur, Home Oxygen, Internal Pacemaker, Lung Disease, MRSA, Palpitations, Peripheral Vascular Disease, Renal Disease, Seizures, Supraventricular Tachycardia Other Medical History: Reports: Arthritis, Hypothyroidism, Osteoporosis, Thyroid Disease Laterality Cases: Bilateral: Breast Biopsy Other Surgeries: Yes: Cardiac Catheterization, Diagnostic Lap, Hysterectomy-Partial. No: Pacemaker Amputation: No Fractures: No *Family Hx:: Cancer, Coronary Artery Disease, Heart Attack
--- NOTE | 2017-08-24 12:04 | HMH.PROC ---
[facility] Procedure Note Procedure Note:: Colonoscopy Procedure Report: Colonoscopy with submucosal injection of Eleview, snare cautery and cold snare polypectomy Endoscopist: Jude Hernandez II, MD Referring physician: Tyson Bhakta MD Date of Procedure: August 24, 2017 Equipment: Olympus 180 variable stiffness pediatric colonoscope Sedation: MAC sedation Indication: Mrs. Guerra is a 71-year-old female who is here for follow-up screening/surveillance colonoscopy. Her last colonoscopy 10 years ago (Dr. Jay Jay Urias) was normal. The patient does state that her mother had colon cancer at the age of 67. She reports no abdominal pain, weight loss, change in her bowel habits or rectal bleeding. She does get some constipation with the use of calcium. Procedure: Prior to the procedure, a history and physical exam was performed, and patient's medications and allergies were reviewed. The risks, benefits and alternatives of the sedation and procedure were discussed with the patient. All questions were answered and informed consent was obtained. The patient was brought to the procedure room. Patient identification and proposed procedure were verified by the physician and the nurse. The patient was placed in a left lateral decubitus position and the scope was passed under direct vision. Throughout the procedure, the patient's blood pressure, pulse, and oxygen saturations were monitored continuously. The colonoscopy was accomplished without difficulty. The patient tolerated the procedure well. Findings: On digital rectal examination there was normal rectal tone. There were no external hemorrhoids. The colonoscope was introduced through the anal canal to the rectum and advanced to the cecum. The ileocecal valve and appendiceal orifice were identified. The scope was advanced a short distance into the ileum which appeared grossly normal. The scope was then withdrawn into the colon. The cecum and ascending colon were normal. At the hepatic flexure was a elongated laterally spreading granular polyp that was very sessile and covered to folds/2 haustral folds. The base of this was injected with Eleview 10 mL. The width of the polyp was approximately 32 mm with 15 mm depth. This was removed with snare cautery and cold snare polypectomy. After complete excision, soft coagulation was used to coat the sides and the site to prevent residual regrowth. There was a second adjacent polyp in the transverse colon. There was a third polyp removed via cold snare polypectomy in the sigmoid colon. Upon retroflexion within the rectum there were grade 1 internal hemorrhoids. Impression: 1. Large flat/sessile hepatic flexure polyp (granular laterally spreading 32 x 15 mm polyp) status post submucosal injection and snare cautery piecemeal removal 2. 2 additional diminutive colon polyps 3. Grade 1 internal hemorrhoids Plan: I will follow-up the polyp histology and recommend repeat screening/surveillance colonoscopy in 6 months to evaluate the site and ensure that there is no residual or recurrence. I will discuss the findings with the patient and family. I would recommend that she have her siblings and children screened.
--- NOTE | 2017-08-24 12:08 | P.PCN_ITS ---
[facility] Procedure Note Procedure Note:: Colonoscopy Procedure Report: Colonoscopy with submucosal injection of Eleview, snare cautery and cold snare polypectomy Endoscopist: Jude Hernandez II, MD Referring physician: Tyson Bhakta MD Date of Procedure: August 24, 2017 Equipment: Olympus 180 variable stiffness pediatric colonoscope Sedation: MAC sedation Indication: Mrs. Guerra is a 71-year-old female who is here for follow-up screening/surveillance colonoscopy. Her last colonoscopy 10 years ago (Dr. Jay Jay Urias) was normal. The patient does state that her mother had colon cancer at the age of 67. She reports no abdominal pain, weight loss, change in her bowel habits or rectal bleeding. She does get some constipation with the use of calcium. Procedure: Prior to the procedure, a history and physical exam was performed, and patient' s medications and allergies were reviewed. The risks, benefits and alternatives of the sedation and procedure were discussed with the patient. All questions were answered and informed consent was obtained. The patient was brought to the procedure room. Patient identification and proposed procedure were verified by the physician and the nurse. The patient was placed in a left lateral decubitus position and the scope was passed under direct vision. Throughout the procedure, the patient's blood pressure, pulse, and oxygen saturations were monitored continuously. The colonoscopy was accomplished without difficulty. The patient tolerated the procedure well. Findings: On digital rectal examination there was normal rectal tone. There were no external hemorrhoids. The colonoscope was introduced through the anal canal to the rectum and advanced to the cecum. The ileocecal valve and appendiceal orifice were identified. The scope was advanced a short distance into the ileum which appeared grossly normal. The scope was then withdrawn into the colon. The cecum and ascending colon were normal. At the hepatic flexure was a elongated laterally spreading granular polyp that was very sessile and covered to folds/2 haustral folds. The base of this was injected with Eleview 10 mL. The width of the polyp was approximately 32 mm with 15 mm depth. This was removed with snare cautery and cold snare polypectomy. After complete excision, soft coagulation was used to coat the sides and the site to prevent residual regrowth. There was a second adjacent polyp in the transverse colon. There was a third polyp removed via cold snare polypectomy in the sigmoid colon. Upon retroflexion within the rectum there were grade 1 internal hemorrhoids. Impression: 1. Large flat/sessile hepatic flexure polyp (granular laterally spreading 32 x 15 mm polyp) status post submucosal injection and snare cautery piecemeal removal 2. 2 additional diminutive colon polyps 3. Grade 1 internal hemorrhoids Plan: I will follow-up the polyp histology and recommend repeat screening/ surveillance colonoscopy in 6 months to evaluate the site and ensure that there is no residual or recurrence. I will discuss the findings with the patient and family. I would recommend that she have her siblings and children screened.
== END 2017-08-24 13:05 | disposition home or self-care (01) ==
LOC: OUTP 10:09
PROVIDERS: Family Provider Family Medicine; PCP Family Medicine; Visit Provider Internal Medicine Gastroenterology
PROC: 0DJD8ZZ Inspection of Lower Intestinal Tract, Via Natural or Artificial Opening Endoscopic (ICD-10-PCS; CPT 45378; principal; 2017-08-24 11:00)
DX: Z12.11 Encounter for screening for malignant neoplasm of colon (principal); K63.5 Polyp of colon; K64.0 First degree hemorrhoids; Z85.038 Personal history of other malignant neoplasm of large intestine
CPT/HCPCS: 45380; 45381; 88305; J2704

== ENCOUNTER → 2017-08-26 09:46 | Outpatient (CLI) | payer MEDICARE, SELFPAY | PROVIDERS: PCP Family Medicine; Visit Provider Internal Medicine Cardiovascular Disease | DX: R55 Syncope and collapse (principal); G47.30 Sleep apnea, unspecified | CPT/HCPCS: G0399 ==

== ENCOUNTER 2017-12-15 11:54 | Outpatient (CLI) | payer MEDICARE, SELFPAY ==
[2017-12-15 13:53] LABS: PHA INR Fingerstick 1.3 (0.9-1.1)
== END 2017-12-15 13:55 | disposition home or self-care (01) ==
LOC: ACC 11:57
PROVIDERS: PCP Family Medicine; Visit Provider Internal Medicine Cardiovascular Disease
DX: Z79.01 Long term (current) use of anticoagulants (principal); Z51.81 Encounter for therapeutic drug level monitoring
CPT/HCPCS: 85610; 99211; G0463

== ENCOUNTER 2017-12-21 11:31 | Outpatient (CLI) | payer MEDICARE, SELFPAY ==
[2017-12-21 14:36] LABS: PHA INR Fingerstick 1.9 (0.9-1.1)
== END 2017-12-21 15:09 | disposition home or self-care (01) ==
LOC: ACC 11:33
PROVIDERS: Family Provider Family Medicine; PCP Family Medicine; Visit Provider Internal Medicine Cardiovascular Disease
DX: Z79.01 Long term (current) use of anticoagulants (principal); Z51.81 Encounter for therapeutic drug level monitoring; I48.91 Unspecified atrial fibrillation
CPT/HCPCS: 85610; 99211; G0463

== ENCOUNTER 2018-01-01 11:24 | Outpatient (CLI) | payer MEDICARE, SELFPAY ==
[2018-01-01 13:27] LABS: PHA INR Fingerstick 2.2 (0.9-1.1)
== END 2018-01-01 13:32 | disposition home or self-care (01) ==
PROVIDERS: Visit Provider Internal Medicine Cardiovascular Disease
DX: Z79.01 Long term (current) use of anticoagulants (principal); Z51.81 Encounter for therapeutic drug level monitoring; I48.91 Unspecified atrial fibrillation
CPT/HCPCS: 85610; 99211; G0463

== ENCOUNTER 2018-01-29 11:01 | Outpatient (CLI) | payer MEDICARE, SELFPAY | END 2018-01-29 16:30 | disposition home or self-care (01) | LOC: ACC 11:02 | PROVIDERS: Visit Provider Internal Medicine Cardiovascular Disease | DX: Z79.01 Long term (current) use of anticoagulants (principal); Z51.81 Encounter for therapeutic drug level monitoring; I48.91 Unspecified atrial fibrillation | CPT/HCPCS: 85610; 99211; G0463 ==

== ENCOUNTER 2018-02-19 10:52 | Outpatient (CLI) | payer MEDICARE, SELFPAY ==
[2018-02-19 12:01] LABS: PHA INR Fingerstick 1.5 (0.9-1.1)
== END 2018-02-19 12:09 | disposition home or self-care (01) ==
PROVIDERS: PCP Family Medicine; Visit Provider Internal Medicine
DX: Z79.01 Long term (current) use of anticoagulants (principal); Z51.81 Encounter for therapeutic drug level monitoring; I48.91 Unspecified atrial fibrillation
CPT/HCPCS: 85610; 99211; G0463

== ENCOUNTER 2018-03-16 14:13 | Outpatient (CLI) | payer MEDICARE, SELFPAY ==
[2018-03-16 16:00] LABS: PHA INR Fingerstick 1.4 (0.9-1.1)
== END 2018-03-16 16:01 | disposition home or self-care (01) ==
LOC: ACC 14:14
PROVIDERS: Family Provider Family Medicine; PCP Family Medicine; Visit Provider Internal Medicine
DX: Z51.81 Encounter for therapeutic drug level monitoring (principal); Z79.01 Long term (current) use of anticoagulants
CPT/HCPCS: 85610; 99211; G0463

== ENCOUNTER 2018-08-09 10:55 | Outpatient (CLI) | payer MEDICARE, SELFPAY ==
[2018-08-19 14:06] LABS: PHA INR Fingerstick 1.5 (0.9-1.1)
== END 2018-08-09 14:32 | disposition home or self-care (01) ==
LOC: ACC 10:57
PROVIDERS: Internal Medicine Cardiovascular Disease; PCP Family Medicine; Visit Provider Internal Medicine
DX: Z51.81 Encounter for therapeutic drug level monitoring (principal); Z79.01 Long term (current) use of anticoagulants; I48.91 Unspecified atrial fibrillation
CPT/HCPCS: 85610; 99211; G0463

== ENCOUNTER 2018-08-27 10:39 | Outpatient (CLI) | payer MEDICARE, SELFPAY ==
[2018-08-27 11:41] LABS: PHA INR Fingerstick 1.5 (0.9-1.1)
== END 2018-08-27 11:50 | disposition home or self-care (01) ==
LOC: ACC 10:40
PROVIDERS: Internal Medicine Cardiovascular Disease; PCP Family Medicine; Visit Provider Internal Medicine
DX: Z51.81 Encounter for therapeutic drug level monitoring (principal); Z79.01 Long term (current) use of anticoagulants; I48.91 Unspecified atrial fibrillation
CPT/HCPCS: 85610; 99211; G0463

== ENCOUNTER → 2018-11-12 13:53 | Outpatient (CLI) | payer MEDICARE, SELFPAY ==
[2018-11-12 14:51] LABS: INR 2.14 (0.9-1.1); Prothrombin Time 21.5 seconds (9.4-11.8)
[2018-11-12 15:04] LABS: Alanine Aminotransferase 23 U/L (12-78); Albumin Level 3.7 gm/dL (3.4-5.0); Alkaline Phosphatase 104 U/L (46-116); Anion Gap 14.6 mEq/L (5-15); Aspartate Amino Transferase 19 U/L (15-37); Bilirubin,Total 0.4 mg/dL (0.2-1.0); Blood Urea Nitrogen 15 mg/dL (7-18); Calcium 8.6 mg/dL (8.5-10.1); Carbon Dioxide 24 mmol/L (21.0-32.0); Chloride 103 mmol/L (98-107); Creatinine,Serum 1.03 mg/dL (0.55-1.02); Estimated Glomerular Filt Rate 53 ml/min (>60); GFR (African American) 64 ML/MIN (>60); Globulin 3.7 gm/dl (1.3-3.2); Glucose 90 mg/dL (74-106); Potassium 4.6 mmoL/L (3.5-5.1); Sodium 137 mmol/L (136-145); Total Protein,Serum 7.4 gm/dL (6.4-8.2)
[2018-11-12 15:19] LABS: C-Reactive Protein < 0.2 mg/L (0.0-0.9)
[2018-11-12 17:12] LABS: Basophils % 0.6 % (0.1-2.0); Eosinophils # 0.2 K/mm3 (0.0-0.4); Eosinophils % 3.9 % (0.1-12.0); Hematocrit 40.6 % (37.0-47.0); Hemoglobin 13.7 g/dL (12.2-16.2); Lymphocytes # 0.9 K/mm3 (0.7-4.5); Mean Corpuscular HGB Conc 33.8 g/dL (31.8-35.4); Mean Corpuscular Hemoglobin 29.6 pg (27.0-31.2); Mean Corpuscular Volume 87.5 fl (81-99); Mean Platelet Volume 6.9 fl (7.4-10.4); Monocytes # 0.4 K/mm3 (0.1-1.0); Monocytes % 9.3 % (1.7-9.3); Neutrophils # 2.6 K/mm3 (1.8-7.8); Neutrophils % 65.2 % (37.0-80.0); Platelet Count 270 K/mm3 (142-424); Red Blood Count 4.64 M/mm3 (4.20-5.40); Red Cell Distribution Width 13.5 % (11.5-17.5); White Blood Count 4.1 K/mm3 (4.8-10.8)
[2018-11-12 17:19] LABS: Erythrocyte Sedimentation Rate 20 mm/hr (0-30)
== END ==
PROVIDERS: Internal Medicine; Visit Provider Internal Medicine
DX: M05.9 Rheumatoid arthritis with rheumatoid factor, unspecified (principal); M15.9 Polyosteoarthritis, unspecified; M35.00 Sjogren syndrome, unspecified; Z51.81 Encounter for therapeutic drug level monitoring; Z79.01 Long term (current) use of anticoagulants
CPT/HCPCS: 36415; 80053; 85025; 85610; 85651; 86140

== ENCOUNTER 2018-12-10 11:25 | Outpatient (CLI) | payer MEDICARE, SELFPAY ==
[2018-12-10 12:10] LABS: PHA INR Fingerstick 1.9 (0.9-1.1)
== END 2018-12-10 12:12 | disposition home or self-care (01) ==
LOC: ACC 11:26
PROVIDERS: PCP Family Medicine; Visit Provider Internal Medicine
DX: Z51.81 Encounter for therapeutic drug level monitoring (principal); Z79.01 Long term (current) use of anticoagulants; I48.91 Unspecified atrial fibrillation
CPT/HCPCS: 85610; 99211; G0463

== ENCOUNTER 2018-12-24 09:52 | Outpatient (CLI) | payer MEDICARE, SELFPAY ==
[2018-12-24 11:33] LABS: INR 1.52 (0.9-1.1); Prothrombin Time 15.5 seconds (9.4-11.8)
[2018-12-24 15:22] LABS: PHA INR Fingerstick 1.8 (0.9-1.1)
== END 2018-12-24 15:35 | disposition home or self-care (01) ==
LOC: ACC 09:53
PROVIDERS: Internal Medicine Cardiovascular Disease; PCP Family Medicine; Visit Provider Internal Medicine
DX: Z51.81 Encounter for therapeutic drug level monitoring (principal); Z79.01 Long term (current) use of anticoagulants; I48.91 Unspecified atrial fibrillation
CPT/HCPCS: 36415; 85610; 99211; G0463

== ENCOUNTER → 2019-08-17 13:21 | Outpatient (CLI) | payer MEDICARE, SELFPAY | PROVIDERS: PCP Family Medicine; Visit Provider Specialist | DX: G47.33 Obstructive sleep apnea (adult) (pediatric) (principal) | CPT/HCPCS: 94762 ==

== ENCOUNTER 2019-08-19 13:51 | Outpatient (CLI) | payer MEDICARE, SELFPAY ==
[2019-08-19 15:01] LABS: PHA INR Fingerstick 1.9 (0.9-1.1)
== END 2019-08-19 15:10 | disposition home or self-care (01) ==
LOC: ACC 13:53
PROVIDERS: PCP Family Medicine; Visit Provider Internal Medicine
DX: Z51.81 Encounter for therapeutic drug level monitoring (principal); Z79.01 Long term (current) use of anticoagulants; I48.91 Unspecified atrial fibrillation
CPT/HCPCS: 85610; 99211; G0463

== ENCOUNTER → 2019-09-07 20:21 | Outpatient (CLI) | payer MEDICARE, SELFPAY | PROVIDERS: PCP Family Medicine; Visit Provider Nurse Practitioner Family | DX: G47.33 Obstructive sleep apnea (adult) (pediatric) (principal) | CPT/HCPCS: 95811 ==

== ENCOUNTER 2019-09-13 11:13 | Outpatient (CLI) | payer MEDICARE, SELFPAY ==
[2019-09-13 16:02] LABS: PHA INR Fingerstick 2.2 (0.9-1.1)
== END 2019-09-13 16:03 | disposition home or self-care (01) ==
LOC: ACC 11:15
PROVIDERS: PCP Family Medicine; Visit Provider Internal Medicine Cardiovascular Disease
DX: Z51.81 Encounter for therapeutic drug level monitoring (principal); Z79.01 Long term (current) use of anticoagulants; I48.91 Unspecified atrial fibrillation
CPT/HCPCS: 85610; 99211; G0463

== ENCOUNTER 2019-10-20 11:27 | Outpatient (CLI) | payer MEDICARE, SELFPAY ==
[2019-10-20 13:52] LABS: PHA INR Fingerstick 1.7 (0.9-1.1)
== END 2019-10-20 13:56 | disposition home or self-care (01) ==
LOC: ACC 11:28
PROVIDERS: Internal Medicine; PCP Family Medicine; Visit Provider Internal Medicine Cardiovascular Disease
DX: Z51.81 Encounter for therapeutic drug level monitoring (principal); Z79.01 Long term (current) use of anticoagulants; I48.91 Unspecified atrial fibrillation
CPT/HCPCS: 85610; 99211; G0463

== ENCOUNTER 2019-11-17 11:39 | Outpatient (CLI) | payer MEDICARE, SELFPAY ==
[2019-11-17 12:25] LABS: PHA INR Fingerstick 1.8 (0.9-1.1)
== END 2019-11-17 12:26 | disposition home or self-care (01) ==
PROVIDERS: PCP Family Medicine; Visit Provider Internal Medicine Cardiovascular Disease
DX: R06.00 Dyspnea, unspecified (principal); R55 Syncope and collapse; Z51.81 Encounter for therapeutic drug level monitoring; Z79.01 Long term (current) use of anticoagulants; I48.91 Unspecified atrial fibrillation
CPT/HCPCS: 85610; 93225; 99211; G0463

== ENCOUNTER → 2019-11-23 15:04 | Outpatient (CLI) | payer MEDICARE, SELFPAY ==
--- NOTE | 2019-11-23 15:07 | CA_ITS ---
APPROVED REPORT EXAM: Comprehensive 2D, Doppler, and color-flow Echocardiogram Double End Tenoner Operator: Evelyn Alexandre RDCS Ht: 5 ft 7 in Wt: 261lbs BSA: 2.26 BP: 104/79 mmHg Indications: PALPS AF SVT 2D Dimensions LVOT 1.96 cm (M/F) 1.5-2.5 M-Mode Dimensions RVDd 3.27 cm (0.9-2.6) LVDd 5.87 cm (3.5-5.7) LVDs 4.57 cm (3.5-5.7) IVSd 1.12 cm (0.6-1.1) PWd 1.08 cm (0.6-1.1) EF (Teich) 44.00% FS 22.10% EDV (Teich) 171.20 mL ESV (Teich) 95.90 mL LV Diastology E/A Ratio 0.59 Mitral Valve MV A Velocity 91.00 (40-130 cm/s) Left Ventricle Left atrium is mildly enlarged, left ventricle is normal size, left ventricle wall thickness is upper limit of the normal, there is preserved left ventricular systolic function, visually estimated ejection fraction 55% with no regional wall motion abnormality. Grade 1 diastolic dysfunction seen without tissue Doppler evidence of raise left atrial pressure. Right Ventricle Right atrium and right ventricular mildly enlarged with normal contractility. Aortic Valve Aortic valve is minimally thickened and fibrosed, there is no aortic stenosis or aortic insufficiency. Mitral Valve Mitral valve is grossly normal, there is mild mitral regurgitation. Tricuspid Valve Tricuspid valve is grossly normal, there is mild tricuspid regurgitation, tricuspid regurgitation jet velocity is inadequate for calculation of the right ventricular systolic pressure. Pulmonic Valve Pulmonic valve is poorly visualized. Great Vessels Aortic root is normal size. Pericardium No significant pericardial effusion noted. Conclusion 1. Mild biatrial enlargement, normal left ventricular size, visually estimated ejection fraction 55% with no regional wall motion abnormality, grade 1 diastolic dysfunction seen without tissue Doppler evidence of raise left atrial pressure. 2. Mildly enlarged right ventricle with normal contractility. 3. Mild mitral and tricuspid regurgitation. 4. No significant pericardial effusion noted. Electronically signed by : Kevin James, 11/24/2019 16:17:02
== END ==
PROVIDERS: PCP Family Medicine; Visit Provider Internal Medicine Cardiovascular Disease
DX: R06.00 Dyspnea, unspecified (principal); R55 Syncope and collapse
CPT/HCPCS: 93306

== ENCOUNTER 2019-12-15 11:33 | Outpatient (CLI) | payer MEDICARE, SELFPAY ==
[2019-12-15 14:27] LABS: PHA INR Fingerstick 2.6 (0.9-1.1)
== END 2019-12-15 14:31 | disposition home or self-care (01) ==
LOC: ACC 11:35
PROVIDERS: PCP Family Medicine; Visit Provider Internal Medicine Cardiovascular Disease
DX: Z51.81 Encounter for therapeutic drug level monitoring (principal); Z79.01 Long term (current) use of anticoagulants; I48.91 Unspecified atrial fibrillation
CPT/HCPCS: 85610; 99211; G0463

== ENCOUNTER → 2019-12-19 10:34 | Outpatient (CLI) | payer MEDICARE, SELFPAY ==
[2019-12-19 11:42] LABS: Microalbumin/Creatinine Ratio 6.5
[2019-12-19 11:46] LABS: Creatinine,Urine Random 155 mg/dL (Not Estab.)
[2019-12-19 12:37] LABS: Alanine Aminotransferase 24 U/L (12-78); Albumin Level 4.5 g/dl (3.5-5.0); Albumin/Globulin Ratio 1.4 (1.1-1.8); Alkaline Phosphatase 95 U/L (38-126); Aspartate Amino Transferase 35 U/L (14-36); Bilirubin,Total 0.5 mg/dl (0.2-1.3); Blood Urea Nitrogen 18 mg/dl (7-17); Calcium 9.7 mg/dl (8.4-10.2); Carbon Dioxide 26 mmol/L (22.0-30.0); Chloride 107 mmol/L (98-107); Chol/HDL Ratio 4.6 (1-3.5); Cholesterol 243 mg/dl (140-200); Estimated Glomerular Filt Rate 54 ml/min (>60); GFR (African American) 66 ML/MIN (>60); Globulin 3.2 g/dL (1.3-3.2); Glucose 102 mg/dl (74-100); HDL Cholesterol 53 mg/dl (40-60); Sodium 142 mmol/L (136-145); Total Protein,Serum 7.7 g/dl (6.3-8.2); Triglycerides 164 mg/dl (30-150); VLDL Cholesterol 33 mg/dL (0-40)
[2019-12-19 12:47] LABS: NT Pro Brain Natriuretic Pep. 46.3 pg/mL (0-125)
[2019-12-19 12:48] LABS: Direct LDL Cholesterol 149.44 mg/dL (100-129)
[2019-12-19 12:54] LABS: T4 (Thyroxine) 9.7 ug/dl (5.53-11.0)
[2019-12-19 13:08] LABS: Thyroid Stimulating Hormone 0.05 uIU/mL (0.465-4.68)
[2019-12-19 22:15] LABS: 25-OH Vitamin D, Total 35.3 ng/mL (30-100)
== END ==
PROVIDERS: Family Medicine; Visit Provider Internal Medicine Cardiovascular Disease
DX: I10 Essential (primary) hypertension (principal); I48.91 Unspecified atrial fibrillation; R06.00 Dyspnea, unspecified; R55 Syncope and collapse; Z79.01 Long term (current) use of anticoagulants; Z51.81 Encounter for therapeutic drug level monitoring; Z79.899 Other long term (current) drug therapy; M81.0 Age-related osteoporosis without current pathological fracture
CPT/HCPCS: 36415; 80053; 80061; 82043; 82306; 82570; 83880; 84436; 84443

== ENCOUNTER → 2019-12-21 13:33 | Outpatient (CLI) | payer MEDICARE, SELFPAY ==
--- NOTE | 2019-12-21 13:34 | CT_ITS ---
PROCEDURE: CT ANGIO CHEST CLINCIAL INDICATION: worsening dyspnea COMPARISON: [facility] CT CHEST W/O CONTRAST from 08/22/2016 TECHNIQUE: IV Contrast: 70ML OPTIRAY 350 Axial images obtained with sagittal and coronal reformats. All CT scans at the facility use one or more dose reduction, viz: automated exposure control, ma/kV adjustment per patient size (including targeted exams where dose is matched to indication, i.e. head), or iterative reconstruction technique. FINDINGS: Tracheobronchial tree is unremarkable. There a stable 5.8 millimeter noncalcified nodule in the left lung apex, 5.8 millimeter noncalcified nodule also within the left lung apex, 3.4 millimeter noncalcified nodule in the superior segment of the left lower lobe, and 2.3 mm noncalcified nodule in the periphery of the the left lower lobe. There is a stable 3.9 mm noncalcified nodule within the medial right upper lobe. 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 There is no CT evidence of pulmonary emboli. Mostly subcentimeter mediastinal lymph nodes are noted.. Fat containing left Bochdalek's hernia is again noted. Adrenal glands and soft tissues are unremarkable. Degenerative thoracic scoliosis is present.. IMPRESSION: Stable bilateral lung nodules, no CT evidence of pulmonary emboli Dictated by: Aleks Vasquez 12/21/2019 14:23 Electronically signed by Aleks Vasquez in [facility] 12/21/2019 14:23
== END ==
PROVIDERS: PCP Family Medicine; Visit Provider Internal Medicine Cardiovascular Disease
DX: R06.00 Dyspnea, unspecified (principal); R55 Syncope and collapse; M35.00 Sjogren syndrome, unspecified; I10 Essential (primary) hypertension; Z51.81 Encounter for therapeutic drug level monitoring; Z79.01 Long term (current) use of anticoagulants; I48.91 Unspecified atrial fibrillation
CPT/HCPCS: 71275; Q9967

== ENCOUNTER → 2019-12-26 10:40 | Outpatient (CLI) | payer MEDICARE, SELFPAY ==
[2019-12-26 11:25] VITALS: PULSE 67; PULSE 70
== END ==
PROVIDERS: PCP Family Medicine; Visit Provider Family Medicine
DX: R06.02 Shortness of breath (principal)
CPT/HCPCS: 94060; 94640

== ENCOUNTER 2020-01-26 11:26 | Outpatient (CLI) | payer MEDICARE, SELFPAY ==
[2020-01-26 15:16] LABS: PHA INR Fingerstick 2.1 (0.9-1.1)
== END 2020-01-26 15:18 | disposition home or self-care (01) ==
LOC: ACC 11:26
PROVIDERS: PCP Family Medicine; Visit Provider Internal Medicine
DX: Z51.81 Encounter for therapeutic drug level monitoring (principal); Z79.01 Long term (current) use of anticoagulants; I48.91 Unspecified atrial fibrillation
CPT/HCPCS: 85610; 99211; G0463

== ENCOUNTER 2020-04-23 11:33 | Outpatient (CLI) | payer MEDICARE, SELFPAY ==
[2020-04-23 13:50] LABS: PHA INR Fingerstick 2.3 (0.9-1.1)
== END 2020-04-23 13:52 | disposition home or self-care (01) ==
LOC: ACC 11:34
PROVIDERS: Physician Assistant; PCP Family Medicine; Visit Provider Internal Medicine
DX: Z51.81 Encounter for therapeutic drug level monitoring (principal); Z79.01 Long term (current) use of anticoagulants; I48.91 Unspecified atrial fibrillation
CPT/HCPCS: 85610; 99211; G0463

== ENCOUNTER 2020-05-10 11:42 | Outpatient (CLI) | payer MEDICARE, SELFPAY ==
[2020-05-10 13:20] LABS: PHA INR Fingerstick 2.2 (0.9-1.1)
== END 2020-05-10 13:22 | disposition home or self-care (01) ==
LOC: ACC 11:44
PROVIDERS: PCP Family Medicine; Visit Provider Internal Medicine
DX: Z51.81 Encounter for therapeutic drug level monitoring (principal); Z79.01 Long term (current) use of anticoagulants; I48.91 Unspecified atrial fibrillation
CPT/HCPCS: 85610; 99211; G0463

== ENCOUNTER → 2020-06-07 14:09 | Outpatient (CLI) | payer MEDICARE, SELFPAY | PROVIDERS: PCP Family Medicine; Visit Provider Specialist | DX: G47.33 Obstructive sleep apnea (adult) (pediatric) (principal) | CPT/HCPCS: 94762 ==

== ENCOUNTER 2020-06-19 13:21 | Outpatient (CLI) | payer MEDICARE, SELFPAY ==
[2020-06-19 16:21] LABS: PHA INR Fingerstick 1.9 (0.9-1.1)
== END 2020-06-19 16:24 | disposition home or self-care (01) ==
LOC: ACC 13:21
PROVIDERS: PCP Family Medicine; Visit Provider Internal Medicine
DX: Z51.81 Encounter for therapeutic drug level monitoring (principal); Z79.01 Long term (current) use of anticoagulants; I48.91 Unspecified atrial fibrillation
CPT/HCPCS: 85610; 99211; G0463

== ENCOUNTER 2020-07-17 14:27 | Outpatient (CLI) | payer MEDICARE, SELFPAY ==
[2020-07-17 16:33] LABS: PHA INR Fingerstick 1.7 (0.9-1.1)
== END 2020-07-17 16:35 | disposition home or self-care (01) ==
LOC: ACC 14:29
PROVIDERS: PCP Family Medicine; Visit Provider Physician Assistant
DX: Z51.81 Encounter for therapeutic drug level monitoring (principal); Z79.01 Long term (current) use of anticoagulants; I48.91 Unspecified atrial fibrillation
CPT/HCPCS: 85610; 99211; G0463

== ENCOUNTER 2020-11-09 10:05 | Outpatient (CLI) | payer MEDICARE, SELFPAY ==
[2020-11-09 12:13] LABS: PHA INR Fingerstick 1.8 (0.9-1.1)
== END 2020-11-09 12:16 | disposition home or self-care (01) ==
LOC: RAD 10:08 → ACC 11:19
PROVIDERS: PCP Family Medicine; Visit Provider Physician Assistant
DX: Z51.81 Encounter for therapeutic drug level monitoring (principal); Z79.01 Long term (current) use of anticoagulants; I48.91 Unspecified atrial fibrillation
CPT/HCPCS: 85610; 99211; G0463

== ENCOUNTER 2020-11-27 10:28 | Outpatient (CLI) | payer MEDICARE, SELFPAY ==
[2020-11-27 14:49] LABS: PHA INR Fingerstick 1.6 (0.9-1.1)
== END 2020-11-27 15:03 | disposition home or self-care (01) ==
LOC: ACC 10:30
PROVIDERS: PCP Family Medicine; Visit Provider Physician Assistant
DX: Z51.81 Encounter for therapeutic drug level monitoring (principal); Z79.01 Long term (current) use of anticoagulants; I48.91 Unspecified atrial fibrillation
CPT/HCPCS: 85610; 99211; G0463

== ENCOUNTER 2020-12-10 10:22 | Outpatient (CLI) | payer MEDICARE, SELFPAY ==
[2020-12-10 13:24] LABS: PHA INR Fingerstick 3.9 (0.9-1.1)
== END 2020-12-10 14:46 | disposition home or self-care (01) ==
LOC: ACC 10:23
PROVIDERS: PCP Family Medicine; Visit Provider Physician Assistant
DX: Z51.81 Encounter for therapeutic drug level monitoring (principal); Z79.01 Long term (current) use of anticoagulants
CPT/HCPCS: 85610; 99211; G0463

== ENCOUNTER 2021-01-23 10:49 | Outpatient (CLI) | payer MEDICARE, SELFPAY | END 2021-01-23 16:27 | disposition home or self-care (01) | PROVIDERS: PCP Family Medicine; Visit Provider Physician Assistant | DX: Z51.81 Encounter for therapeutic drug level monitoring (principal); Z79.01 Long term (current) use of anticoagulants; I48.91 Unspecified atrial fibrillation | CPT/HCPCS: 85610; 99211; G0463 ==

== ENCOUNTER → 2021-04-25 13:22 | Outpatient (CLI) | payer MEDICARE, SELFPAY ==
--- NOTE | 2021-04-25 13:34 | XR_ITS ---
PROCEDURE: XR KNEE RT 3V CLINICAL INDICATION: POLYOSTEOARTHRITIS COMPARISON: CR XR KNEE LT 3V from 04/25/2021 FINDINGS: No fracture or dislocation. No lytic or blastic change. There is normal mineralization. There is mild joint space narrowing medially and there is mild spurring of the tibial spines. There is marked narrowing of the patellofemoral space with mild spurring of the superior and inferior borders of the patella. There is no loose body seen. There is no effusion. IMPRESSION: Moderate osteoarthritic changes as noted Dictated by: Dr. Mukul Scott MD 04/26/2021 15:01 Dr. Mukul Scott MD in [facility] 04/26/2021 15:01
--- NOTE | 2021-04-25 13:34 | XR_ITS ---
PROCEDURE: XR KNEE LT 3V CLINICAL INDICATION: POLYOSTEOARTHRITIS COMPARISON: Right knee same date FINDINGS: There is mild joint space narrowing medially. There is minimal spurring of the medial femoral condyle. There is prominent spurring of the tibial spines. There is prominent narrowing of the patellofemoral space with minimal spurring of the superior and inferior borders of the patella. There is faint calcification of the lateral meniscus. There is no definite loose body seen.. IMPRESSION: Moderate osteoarthritic changes along with mild chondrocalcinosis lateral meniscus Dictated by: Dr. Mukul Scott MD 04/26/2021 15:04 Dr. Mukul Scott MD in [facility] 04/26/2021 15:04
[2021-04-25 14:04] LABS: Basophils % 0.5 % (0.1-2.0); Eosinophils # 0.1 K/mm3 (0.0-0.4); Eosinophils % 2.5 % (0.1-12.0); Hematocrit 47.8 % (37.0-47.0); Hemoglobin 15.1 g/dL (12.2-16.2); Lymphocytes # 0.8 K/mm3 (0.7-4.5); Lymphocytes % 16.1 % (10-50); Mean Corpuscular HGB Conc 31.6 g/dL (31.8-35.4); Mean Corpuscular Hemoglobin 30.2 pg (27.0-31.2); Mean Corpuscular Volume 95.8 fl (81-99); Monocytes # 0.3 K/mm3 (0.1-1.0); Monocytes % 5.5 % (1.7-9.3); Neutrophils # 3.8 K/mm3 (1.8-7.8); Neutrophils % 75.4 % (37.0-80.0); Platelet Count 329 K/mm3 (142-424); Red Blood Count 4.99 M/mm3 (4.20-5.40); Red Cell Distribution Width 14.3 % (11.5-17.5)
[2021-04-25 14:20] LABS: Chloride 102 mmol/L (98-107); Potassium 3.7 mmoL/L (3.5-5.1); Sodium 140 mmol/L (136-145)
[2021-04-25 14:23] LABS: Alanine Aminotransferase 16 U/L (12-78); Albumin Level 4.2 g/dl (3.5-5.0); Albumin/Globulin Ratio 1.2 (1.1-1.8); Alkaline Phosphatase 98 U/L (38-126); Anion Gap 13.7 mEq/L (5-15); Aspartate Amino Transferase 30 U/L (14-36); Bilirubin,Total 0.4 mg/dl (0.2-1.3); Blood Urea Nitrogen 11 mg/dl (7-17); Carbon Dioxide 28 mmol/L (22.0-30.0); Estimated Glomerular Filt Rate 61 ml/min (>60); GFR (African American) 74 ML/MIN (>60); Globulin 3.4 g/dL (1.3-3.2); Total Protein,Serum 7.6 g/dl (6.3-8.2)
[2021-04-25 14:24] LABS: Calcium 9.3 mg/dl (8.4-10.2); Glucose 167 mg/dl (74-100)
[2021-04-25 14:29] LABS: C-Reactive Protein 4.4 mg/L (0-4)
[2021-04-25 14:36] LABS: Erythrocyte Sedimentation Rate 10 mm/hr (0-30)
== END ==
PROVIDERS: Visit Provider Nurse Practitioner Family
DX: M05.9 Rheumatoid arthritis with rheumatoid factor, unspecified (principal); M35.00 Sjogren syndrome, unspecified
CPT/HCPCS: 36415; 73562; 80053; 85025; 85651; 86140

== ENCOUNTER 2021-11-09 21:28 | Emergency (ER) | payer MEDICARE, SELFPAY ==
[2021-11-09 21:30] VITALS: BP 131/104; PULSE 93; RESP 18; TEMP 36.7; O2SAT 96; BMI 34.2
--- NOTE | 2021-11-09 21:51 | PC.NURSE ---
ED in room with patient
[2021-11-09 22:23] LABS: Eosinophils # 0.2 K/mm3 (0.0-0.4); Eosinophils % 4.2 % (0.1-12.0); Hemoglobin 13.9 g/dL (12.2-16.2); Lymphocytes # 0.8 K/mm3 (0.7-4.5); Lymphocytes % 18.2 % (10-50); Mean Corpuscular HGB Conc 33.1 g/dL (31.8-35.4); Mean Corpuscular Hemoglobin 30.5 pg (27.0-31.2); Mean Corpuscular Volume 92.2 fl (81-99); Mean Platelet Volume 7.8 fl (7.4-10.4); Monocytes # 0.4 K/mm3 (0.1-1.0); Monocytes % 8.3 % (1.7-9.3); Neutrophils # 3.1 K/mm3 (1.8-7.8); Neutrophils % 68.2 % (37.0-80.0); Platelet Count 239 K/mm3 (142-424); Red Blood Count 4.55 M/mm3 (4.20-5.40); Red Cell Distribution Width 13.8 % (11.5-17.5); White Blood Count 4.5 K/mm3 (4.8-10.8)
[2021-11-09 22:32] LABS: Activated Partial Thrombo Time 29.3 seconds (22.8-30.6); Alanine Aminotransferase 26 U/L (12-78); Albumin Level 4.1 g/dl (3.5-5.0); Albumin/Globulin Ratio 1.4 (1.1-1.8); Alkaline Phosphatase 88 U/L (38-126); Anion Gap 10.5 mEq/L (5-15); Aspartate Amino Transferase 33 U/L (14-36); Bilirubin,Total 0.2 mg/dl (0.2-1.3); Blood Urea Nitrogen 13 mg/dl (7-17); Calcium 9.3 mg/dl (8.4-10.2); Carbon Dioxide 28 mmol/L (22.0-30.0); Chloride 104 mmol/L (98-107); Creatinine Clearance Estimated 84 mL/min (50-200); Estimated Glomerular Filt Rate 54 ml/min (>60); GFR (African American) 65 ML/MIN (>60); Glucose 98 mg/dl (74-100); INR 1.11 (0.9-1.1); Potassium 3.5 mmoL/L (3.5-5.1); Prothrombin Time 12.4 seconds (10.1-12.5); Sodium 139 mmol/L (136-145); Total Protein,Serum 7.1 g/dl (6.3-8.2)
[2021-11-09 22:38] LABS: D-Dimer 1.13 ug/mL (0.0-0.5)
[2021-11-09 22:47] LABS: Troponin I < 0.01 ng/ml (0.00-0.034)
--- NOTE | 2021-11-09 23:19 | CT_ITS ---
PROCEDURE INFORMATION: Exam: CTA Chest With Contrast Exam date and time: 11/09/2021 11:48 PM Age: 76 years old Clinical indication: Other: Elevated d dimer TECHNIQUE: Imaging protocol: Computed tomographic angiography of the chest with contrast. 3D rendering (Not supervised by radiologist): MIP and/or 3D reconstructed images were created by the technologist. Radiation optimization: All CT scans at this facility use at least one of these dose optimization techniques: automated exposure control; mA and/or kV adjustment per patient size (includes targeted exams where dose is matched to clinical indication); or iterative reconstruction. Contrast material: ISOVUE 370; Contrast volume: 70 ml; Contrast route: INTRAVENOUS (IV); COMPARISON: CT ANGIO CHEST 12/21/2019 1:44 PM FINDINGS: Pulmonary arteries: Normal. No pulmonary emboli. Aorta: Unremarkable. No aortic aneurysm. No aortic dissection. Lungs: Unremarkable. No consolidation. No masses. Pleural spaces: Unremarkable. No pneumothorax. No pleural effusion. Heart: Unremarkable. No cardiomegaly. No pericardial effusion. Lymph nodes: Unremarkable. No enlarged lymph nodes. Bones/joints: Unremarkable. No acute fracture. Soft tissues: Unremarkable. IMPRESSION: No acute findings.
--- NOTE | 2021-11-10 00:58 | HMH.EDEXTP ---
ED Disposition Clinical Impression: Thrombophlebitis Disposition: Home, Self-Care Condition on Discharge: Good Instructions: Superficial Thrombophlebitis Additional Instructions: Follow-up with your primary care physician in 2 to 3 days for further management. You have also been given antibiotic (paper script) to be taken as prescribed due to concern for thrombophlebitis with cellulitis. Due to possible concern for DVT you have also been scheduled for an ultrasound for tomorrow you will be called to set up an appointment. Please continue to take your blood thinner warfarin as prescribed do not miss a dose. Please return for any concerning signs such as chest pain, difficulty breathing, coughing up blood, worsening leg pain, worsening redness or any other concerns. Referrals: Tyson Bhakta MD [Primary Care Provider] - - Critical Care Critical Care Time: No Attestation: On 11/09/21, the high probability of a clinically significant, sudden or life threatening deterioration of the following system(s) required my full and direct attention, intervention and personal management. The time I documented below is in addition to time spent performing reported procedures but includes the following listed in this critical care notation. Medical Decision Making - Medical Records Medical records reviewed: Yes: I reviewed the patient's medical records. - Van Inquiry Pt receiving controlled substance: No Vital Signs: 11/09/21 21:30 11/10/21 01:19 Temperature 98.1 F 97.9 F Temperature Source Oral Oral Pulse Rate 83 Pulse Rate [Right] 93 H Respiratory Rate 18 18 Blood Pressure 138/78 Blood Pressure [Right Arm] 131/104 H Blood Pressure Mean [Right Arm] 113 02 Sat by Pulse Oximetry 96 Oxygen Delivery Method Room Air - Lab Data Lab results reviewed: Yes: I reviewed the patient's lab results. Lab Results 11/09/21 22:11: WBC 4.5 L, RBC 4.55, Hgb 13.9, Hct 42.0, MCV 92.2, MCH 30.5, MCHC 33.1, RDW 13.8, Plt Count 239, MPV 7.8, Neut % (Auto) 68.2, Lymph % (Auto) 18.2, [place] % (Auto) 8.3, Eos % (Auto) 4.2, Baso % (Auto) 1.0, Neut # (Auto) 3.1, Lymph # (Auto) 0.8, [place] # (Auto) 0.4, Eos # (Auto) 0.2, Baso # (Auto) 0.0 11/09/21 22:11: D-Dimer 1.13 H 11/09/21 22:11: PT 12.4, INR 1.11 H, APTT 29.3 11/09/21 22:11: Sodium 139, Potassium 3.5, Chloride 104, Carbon Dioxide 28, Anion Gap 10.5, BUN 13, Creatinine 1.00, Estimated Creat Clear 84, Estimated GFR 54 L, Est GFR ( Amer) 65, Glucose 98, Calcium 9.3, Total Bilirubin 0.2, AST 33, ALT 26, Alkaline Phosphatase 88, Troponin I < 0.01, Total Protein 7.1, Albumin 4.1, Globulin 3.0, Albumin/Globulin Ratio 1.4 Result diagrams: 11/09/21 22:11 11/09/21 22:11 Orders (Tests/Meds): ED MEDICATIONS Discontinued Medications Generic Name Dose Route Start Last Admin Trade Name Freq PRN Reason Stop Dose Admin Iopamidol 70 ml 11/10/21 00:02 11/10/21 00:04 Iopamidol-370 (76%);100ml Bottle IV 11/10/21 00:03 70 ml ONCE ONE Administration Sodium Chloride 50 ml 11/10/21 00:02 11/10/21 00:03 0.9 % Sodium Chloride 50 Ml Vial IV 11/10/21 00:03 50 ml ONCE ONE Administration Sodium Chloride 10 ml 11/10/21 00:02 11/10/21 00:04 Sodium Chloride 0.9% 10ml Syr (Rad Only) IV 11/10/21 00:03 10 ml ONCE ONE Administration Medical Decision Narrative: Miss Kelsey is a 76 yo female w/ PMH for afib (warfarin), DVT LLE presenting to the ED for pain and eyrthema of the RLE. Patient is afebrile and hemodynamically stale on arrival. Patient denies any systemic signs of infection. Physical exam patinet has eyrthematous spot on the (R) thigh, warm to touch. No crepitus or significant swelling noted. Findings consistent with superficia thrombophlebitis. Bedside US is performed for further investigation results show no drainable abscess or soft tissue edema noted. Findings consistent with thrombophlebitis, no obvious DVT seen. However, to definitively rule out DVT, Vas
[2021-11-10 01:19] VITALS: BP 138/78; PULSE 83; RESP 18; TEMP 36.6; O2SAT 96
== END 2021-11-10 01:22 | disposition home or self-care (01) ==
PROVIDERS: Emergency Provider Student in an Organized Health Care Education/Training Program; PCP Family Medicine
DX: I80.11 Phlebitis and thrombophlebitis of right femoral vein (principal); I48.0 Paroxysmal atrial fibrillation; F41.8 Other specified anxiety disorders; I10 Essential (primary) hypertension; E78.5 Hyperlipidemia, unspecified; E03.9 Hypothyroidism, unspecified; Z79.899 Other long term (current) drug therapy
CPT/HCPCS: 71275; 80053; 84484; 85025; 85378; 85610; 85730; 99284; Q9967

== ENCOUNTER → 2021-11-10 15:26 | Outpatient (CLI) | payer MEDICARE, SELFPAY ==
--- NOTE | 2021-11-10 | CA_ITS ---
FINAL REPORT TECHNIQUE: Color Doppler, duplex Doppler and compression sonography of the right lower extremity venous system was performed. CLINICAL HISTORY: PREV DVT YRS AGO.. ON WARFARIN 5MG PT NOT COMPLIANT WITH MEDS. FINDINGS: There is no evidence of deep venous thrombosis from the level of the groin to the calf. The veins are patent and compressible. Superficial venous thrombosis is noted. IMPRESSION: No evidence of deep venous thrombosis right lower extremity. Superficial venous thrombosis. Reviewed, Interpreted and Dictated by Tashi Choi III, MD Transcribed by Elva Ferrer Authenticated by Tashi Choi III, MD on 11/11/2021 07:50:39 AM [facility]
== END ==
PROVIDERS: PCP Family Medicine; Visit Provider Student in an Organized Health Care Education/Training Program
DX: M79.604 Pain in right leg (principal); R60.0 Localized edema
CPT/HCPCS: 93971

== ENCOUNTER 2021-12-06 09:23 | Outpatient (CLI) | payer MEDICARE, SELFPAY ==
[2021-12-06 11:58] LABS: PHA INR Fingerstick 1.9 (0.9-1.1)
== END 2021-12-06 12:00 | disposition home or self-care (01) ==
PROVIDERS: PCP Family Medicine; Visit Provider Physician Assistant
DX: Z79.01 Long term (current) use of anticoagulants (principal); Z51.81 Encounter for therapeutic drug level monitoring; I48.91 Unspecified atrial fibrillation
CPT/HCPCS: 85610; 99211; G0463

== ENCOUNTER 2021-12-17 10:57 | Outpatient (CLI) | payer MEDICARE, SELFPAY ==
[2021-12-17 15:36] LABS: PHA INR Fingerstick 2.7 (0.9-1.1)
== END 2021-12-17 15:38 | disposition home or self-care (01) ==
PROVIDERS: PCP Family Medicine; Visit Provider Physician Assistant
DX: Z51.81 Encounter for therapeutic drug level monitoring (principal); Z79.01 Long term (current) use of anticoagulants; I48.0 Paroxysmal atrial fibrillation
CPT/HCPCS: 85610; 99211; G0463

== ENCOUNTER → 2021-12-25 12:20 | Outpatient (CLI) | payer MEDICARE, SELFPAY ==
[2021-12-25 13:31] LABS: Blood Urea Nitrogen 20 mg/dl (7-17); Estimated Glomerular Filt Rate 54 ml/min (>60); GFR (African American) 65 ML/MIN (>60)
== END ==
PROVIDERS: PCP Family Medicine; Visit Provider Family Medicine
DX: G44.52 New daily persistent headache (NDPH) (principal)
CPT/HCPCS: 36415; 82565; 84520

== ENCOUNTER → 2021-12-26 08:50 | Outpatient (CLI) | payer MEDICARE, SELFPAY ==
--- NOTE | 2021-12-26 08:53 | MR_ITS ---
FINAL REPORT CLINICAL HISTORY: NEW DAILY PERSISTENT HEADACHE. UNSTEADY ON FEET AND SOME FORGETFULNESS. 23ML PROHANCE GIVEN. FINDINGS: Multiplanar MR imaging of the brain was performed without and with contrast. There is motion on many of the images which decreases sensitivity of the examination. There is mild age-appropriate atrophy. Scattered foci of increased T2 signal are seen in the cerebral white matter that have a nonspecific appearance but likely represent mild chronic ischemic/gliotic changes. There is no evidence of intracranial hemorrhage or mass. No abnormal ventricular dilatation is identified. There is no evidence of shift of the midline structures. No abnormal extra-axial fluid collection is seen. No area of abnormal restricted diffusion is identified. The posterior fossa and brainstem have an unremarkable appearance. No abnormal contrast enhancement is seen. Normal major vessel vascular flow voids are seen. IMPRESSION: Mild atrophy and chronic ischemic/gliotic changes. No acute intracranial abnormality. Reviewed, Interpreted and Dictated by Tashi Choi III, MD Transcribed by Bisi Curry Authenticated and [facility]
== END ==
PROVIDERS: PCP Family Medicine; Visit Provider Family Medicine
DX: G44.52 New daily persistent headache (NDPH) (principal); R27.0 Ataxia, unspecified
CPT/HCPCS: 70553; A9576

== ENCOUNTER 2022-03-12 11:17 | Outpatient (CLI) | payer MEDICARE, SELFPAY ==
[2022-03-12 13:39] LABS: PHA INR Fingerstick 1.5 (0.9-1.1)
== END 2022-03-12 13:57 ==
LOC: ACC 11:18
PROVIDERS: PCP Family Medicine; Visit Provider Physician Assistant
DX: Z51.81 Encounter for therapeutic drug level monitoring (principal); Z79.01 Long term (current) use of anticoagulants; I48.91 Unspecified atrial fibrillation
CPT/HCPCS: 85610; 99211; G0463

== ENCOUNTER 2022-03-21 10:41 | Outpatient (CLI) | payer MEDICARE, SELFPAY | END 2022-03-21 11:27 | LOC: ACC 10:42 | PROVIDERS: PCP Family Medicine; Visit Provider Physician Assistant | DX: Z51.81 Encounter for therapeutic drug level monitoring (principal); Z79.01 Long term (current) use of anticoagulants | CPT/HCPCS: 85610; 99211; G0463 ==

== ENCOUNTER 2022-05-08 11:30 | Outpatient (CLI) | payer MEDICARE, SELFPAY ==
[2022-05-08 14:32] LABS: PHA INR Fingerstick 1.5 (0.9-1.1)
== END 2022-05-08 14:34 ==
LOC: ACC 11:34
PROVIDERS: PCP Family Medicine; Visit Provider Nurse Practitioner Family
DX: Z51.81 Encounter for therapeutic drug level monitoring (principal); Z79.01 Long term (current) use of anticoagulants
CPT/HCPCS: 85610; 99211; G0463

== ENCOUNTER → 2022-05-20 15:25 | Outpatient (CLI) | payer MEDICARE, SELFPAY ==
--- NOTE | 2022-05-20 15:40 | XR_ITS ---
FINAL REPORT CLINICAL HISTORY: HIP PAIN FINDINGS: 2 views of the right hip and an AP pelvis were obtained. There is no acute fracture or dislocation. There is mild right hip degenerative change. There are no soft tissue abnormalities. IMPRESSION: Mild degenerative change. Reviewed, Interpreted and Dictated by Tashi Choi III, MD Transcribed by Dmitri Martinez Authenticated and [facility]
--- NOTE | 2022-05-20 15:47 | XR_ITS ---
FINAL REPORT CLINICAL HISTORY: KNEE PAIN COMPARISON: March 2021 FINDINGS: 3 views of the right knee were obtained. There is no acute fracture or dislocation. Mild and moderate degenerative changes are greatest in the patellofemoral joint space. There is no soft tissue abnormality. IMPRESSION: Mild and moderate degenerative change. Reviewed, Interpreted and Dictated by Tashi Choi III, MD Transcribed by Dmitri Martinez Authenticated and [facility]
== END ==
PROVIDERS: PCP Family Medicine; Visit Provider Nurse Practitioner Family
DX: M25.551 Pain in right hip (principal); M25.561 Pain in right knee
CPT/HCPCS: 73502; 73562

== ENCOUNTER → 2022-06-06 16:54 | Outpatient (CLI) | payer MEDICARE, SELFPAY ==
--- NOTE | 2022-06-06 17:04 | XR_ITS ---
PROCEDURE INFORMATION: Exam: XR Chest Exam date and time: 06/06/2022 5:06 PM Age: 76 years old Clinical indication: Cough; Additional info: Pneumonia, cough TECHNIQUE: Imaging protocol: Radiologic exam of the chest. Views: 2 views. COMPARISON: CT ANGIO CHEST PE PROTOCOL 11/09/2021 11:48 PM FINDINGS: Lungs: Hazy airspace opacity in right lower lobe suspicious for developing pneumonia. Pleural spaces: Unremarkable. No pleural effusion. No pneumothorax. Heart/Mediastinum: Unremarkable. No cardiomegaly. Bones/joints: Unremarkable. IMPRESSION: Hazy airspace opacity in right lower lobe suspicious for developing pneumonia.
== END ==
LOC: RAD 16:56
PROVIDERS: PCP Family Medicine; Visit Provider Nurse Practitioner Family
DX: J18.9 Pneumonia, unspecified organism (principal)
CPT/HCPCS: 71046

== ENCOUNTER → 2022-06-19 12:34 | Outpatient (CLI) | payer MEDICARE, OTHER, SELFPAY ==
--- NOTE | 2022-06-19 12:57 | MM_ITS ---
PROCEDURE INFORMATION: Exam: US Right Breast, Complete MG Bilateral Diagnostic Breast Tomosynthesis Exam date and time: 06/19/2022 12:53 PM Age: 76 years old Clinical indication: Right breast palpable lump TECHNIQUE: Imaging protocol: Complete ultrasound of all four quadrants of the Right breast and the retroareolar regions, including ultrasound of the axilla when performed. Bilateral Diagnostic tomosynthesis and 2D mammography including computer-aided detection (CAD) when performed. Unilateral or bilateral exam. COMPARISON: MG DMSB DIG MAMM-SCREEN SHARONDA W/CAD 06/18/2017 9:26 AM FINDINGS: MAMMOGRAPHY: The breast tissue is composed of scattered areas of fibroglandular density. There is no stellate mass, architectural distortion or suspicious microcalcifications in either breast to suggest malignancy. Additional spot compression views of the palpable abnormality in the anterior right upper outer quadrant demonstrates either a cluster of subcentimeter masses all 1 dominant lobulated mass measuring 2.2 x 1.6 cm in dimension. There is a clip in close proximity to the mass suggestive of prior biopsy. The mass appears somewhat more prominent compared to 2016. No skin thickening or axillary adenopathy. ULTRASOUND: Sonographic images of the right breast including the retroareolar region, all 4 quadrants and the axilla demonstrates 2 adjacent hypoechoic masses. These are located in the 9 o'clock axis 3 cm from the nipple and corresponds to the patient's complaint of a palpable abnormality. They are predominantly cystic with internal solid architecture present. They measure 1.0 x 1.7 x 1.2 cm and 1.0 x 1.7 x 0.8 cm respectively. No architectural distortion or acoustical shadowing. No skin thickening or axillary adenopathy. IMPRESSION: Palpable abnormality in the right lateral breast corresponds to 2 adjacent mixed solid and cystic masses possibly reflecting intracystic papillary lesions. Ultrasound-guided core biopsy of both masses with targeting of the solid components are recommended for further evaluation ASSESSMENT: BI-RADS Category 4: Suspicious
== END ==
PROVIDERS: PCP Family Medicine; Visit Provider Nurse Practitioner Family
DX: R92.8 Other abnormal and inconclusive findings on diagnostic imaging of breast (principal)
CPT/HCPCS: 76641; 77062; 77066; G0279

== ENCOUNTER → 2022-07-07 09:35 | Outpatient (CLI) | payer MEDICARE, OTHER, SELFPAY ==
--- NOTE | 2022-07-07 10:16 | US_ITS ---
FINAL REPORT CLINICAL HISTORY: rt breast nodule bx-- DR RESTREPO MAMMATOME FINDINGS: ULTRASOUND-GUIDED RIGHT BREAST CORE BIOPSY TECHNIQUE: Limited images were obtained to localize region of interest. The patient had a mixed cystic and solid mass of the right lateral breast at 9:00. The right breast was prepped in a routine sterile fashion and locally anesthetized with 1% lidocaine. Standard written informed consent was obtained. An 10-gauge vacuum assisted hand-held device was utilized. The needle was positioned posterior to the lesion. During positioning of the biopsy needle, most of the cystic contents were noted to be absent reflecting rupture of the cyst. However the solid component remained readily visible. Multiple vacuum assisted core samples were obtained. The lesion was noted to be significantly smaller following biopsy. A biopsy marker clip was deployed in satisfactory position. Postbiopsy mammogram showed postbiopsy changes with clip in satisfactory position. Procedure was well tolerated . CONCLUSION: 1. Technically successful ultrasound guided vacuum assisted core biopsy of right breast lesion as above. 2. Biopsy marker clip deployed Authenticated and [facility]
--- NOTE | 2022-07-07 10:20 | MM_ITS ---
FINAL REPORT CLINICAL HISTORY: . s/p biopsy, right breast nodule FINDINGS: MAMMOGRAM RIGHT TECHNIQUE: Standard digital 2-D views COMPARISON: 06-19-22 DENSITY: There are scattered areas of fibroglandular density FINDINGS: Post biopsy marker clip is noted to be in satisfactory position. The previously visualized lobulated mass of the lateral right breast is markedly smaller. This reflects tissue sampling and cyst rupture. Postbiopsy changes are noted. IMPRESSION: Biopsy marker clip in good position RECOMMENDATION: Pending histopathology evaluation Authenticated and [facility]
== END ==
PROVIDERS: PCP Family Medicine; Visit Provider Family Medicine
DX: D48.61 Neoplasm of uncertain behavior of right breast (principal)
CPT/HCPCS: 19083; 77065; 88305; 88342; C2618

== ENCOUNTER 2022-08-03 14:30 | Emergency (ER) | payer MEDICARE, OTHER, SELFPAY ==
[2022-08-03] VITALS (12 sets, daily range): BP systolic 126–202; BP diastolic 73–100; PULSE 65–72; RESP 14–21; TEMP 36.2–36.4; O2SAT 94–98; BMI 31.4
--- NOTE | 2022-08-03 14:32 | CT_ITS ---
PROCEDURE INFORMATION: Exam: CT Head Without Contrast Exam date and time: 08/03/2022 2:37 PM Age: 76 years old Clinical indication: Stroke-like symptoms; Altered mental status/memory loss; Additional info: RO stroke, extremely confused, too weak to move. TECHNIQUE: Imaging protocol: Computed tomography of the head without contrast. Radiation optimization: All CT scans at this facility use at least one of these dose optimization techniques: automated exposure control; mA and/or kV adjustment per patient size (includes targeted exams where dose is matched to clinical indication); or iterative reconstruction. Other protocol: This patient has received [address] and 0 known cardiac nuclear medicine studies in the 12 months prior to the current study. Other technique: STROKE PROTOCOL was implemented. COMPARISON: MR HEAD/BRAIN WO/W CON 12/26/2021 9:17 AM FINDINGS: Brain: Chronic, underlying, age-related parenchymal cortical volume loss, deep periventricular white matter changes. Impression no acute intracranial findings by CT criteria identified. Chronic age-related changes Cerebral ventricles: No obvious intracranial fluid collection, mass effect, hydrocephalus. Paranasal sinuses: Visualized sinuses are unremarkable. No fluid levels. Mastoid air cells: Visualized mastoid air cells are well aerated. Orbital cavities: Visualized orbits grossly unremarkable for acute findings. Bones/joints: Visualized osseous structures grossly unremarkable for acute findings. Soft tissues: Unremarkable. Other findings: Study somewhat compromised secondary to motion degradation artifact. IMPRESSION:
--- NOTE | 2022-08-03 14:33 | XR_ITS ---
PROCEDURE INFORMATION: Exam: XR Chest Exam date and time: 08/03/2022 3:01 PM Age: 76 years old Clinical indication: Other: Possible stroke TECHNIQUE: Imaging protocol: Radiologic exam of the chest. Views: 1 view. COMPARISON: CR XR CHEST 2V 06/06/2022 5:06 PM FINDINGS: Lungs: Unremarkable. No consolidation. Pleural spaces: Unremarkable. No pleural effusion. No pneumothorax. Heart/Mediastinum: Unremarkable. No cardiomegaly. Bones/joints: Unremarkable. IMPRESSION: No acute findings.
--- NOTE | 2022-08-03 14:48 | HMH.EDSYNC ---
Discharge Plan Disposition Patient Disposition: Home, Self-Care Condition: Fair Prescriptions Prescriptions: No Action Adult Probiotic 3 billion cell capsule 3,000 mmu cells PO DAILY vitamin B complex [B Complex-Vitamin B12] tablet 1 tab PO DAILY levothyroxine 150 mcg tablet 150 mcg PO DAILY zaleplon 5 mg capsule 5 mg PO DAILY Qty: 20 3RF Rx Instructions: 5 mg po qhs prn insomnia cholecalciferol (vitamin D3) 1,000 unit capsule 1,000 unit PO DAILY leflunomide 20 mg tablet 20 mg PO DAILY furosemide 20 mg tablet 20 mg PO DAILY Qty: 30 5RF metoprolol succinate [Toprol XL] 25 mg tablet extended release 24 hr 25 mg PO DAILY Qty: 30 5RF Rx Instructions: at bedtime doxepin 10 mg capsule 10 mg PO QHS Qty: 30 1RF meloxicam 15 MG tablet 15 mg PO DAILY sertraline 100 MG tablet 100 mg PO DAILY Label Comments: hydroxychloroquine 200 MG tablet 200 mg PO DAILY warfarin 5 MG tablet 7.5 mg PO Q48H warfarin 5 MG tablet 5 mg PO Q48H Referrals Follow up/Referrals: Tyson Bhakta MD [Primary Care Provider] - See instructions Activity Restrictions/Add. Instructions Additional Instructions/Restrictions: Follow-up with your primary care doctor in the next 2 to 3 days. Return to the emergency department immediately if you feel worse in any way. You can take [id number] Tylenol for your headache. Clinical Impressions Clinical Impression: Syncope, Headache Instructions Patient Instructions: DI for Headache Discharge ED Provider: Terry Dumont Syncope HPI General Chief Complaint: Altered Mental Status Stated Complaint: ams Time Seen by Provider: 08/03/22 14:35 History of Present Illness HPI narrative: The patient presents to the emergency department via EMS after having suffered a syncopal episode. She seems somewhat confused. No seizure activity was witnessed at the scene. complaint: loss of consciousness Related Data Home Medications Medication Instructions Recorded Confirmed hydroxychloroquine 200 mg tablet 200 mg PO DAILY Arthritis 08/05/17 07/18/20 sertraline 100 mg tablet 100 mg PO DAILY mood 08/05/17 07/18/20 meloxicam 15 mg tablet 15 mg PO DAILY Arthritis 08/18/17 07/18/20 lactobacillus combination no.8 3 3,000 mmu cells PO DAILY 06/10/18 07/18/20 billion cell capsule (Adult Probiotic) vitamin B complex (B 1 tab PO DAILY 06/10/18 07/18/20 Complex-Vitamin B12 tablet) cholecalciferol (vitamin D3) 25 1,000 unit PO DAILY 12/23/18 07/18/20 mcg (1,000 unit) capsule leflunomide 20 mg tablet 20 mg PO DAILY 12/23/18 07/18/20 levothyroxine 150 mcg tablet 150 mcg PO DAILY 07/07/19 07/18/20 warfarin 5 mg tablet 5 mg PO Q48H thinner 12/05/19 07/18/20 warfarin 5 mg tablet 7.5 mg PO Q48H THINNER 12/05/19 07/18/20 Previous Rx's Medication Instructions Recorded furosemide 20 mg tablet 20 mg PO DAILY FLUID RETENTION #30 11/17/19 tabs metoprolol succinate 25 mg 25 mg PO DAILY #30 tabs 11/17/19 tablet,extended release 24 hr (Toprol XL) doxepin 10 mg capsule 10 mg PO QHS #30 caps 02/01/20 zaleplon 5 mg capsule 5 mg PO DAILY insomnia #20 caps 03/14/20 Allergies Allergy/AdvReac Type Severity Reaction Status Date / Time erythromycin base Allergy Mild Verified 07/18/20 11:07 promethazine Allergy Mild Verified 07/18/20 11:07 Sulfa (Sulfonamide Allergy Mild Rash Verified 07/18/20 11:07 Antibiotics) [facility] Disclaimer: The information contained in this section may have been updated after the patient was seen, as this information can be updated by other users. Medical History (Updated 08/03/22 @ 16:57 by Terry Dumont MD) [employer] current use of anticoagulant therapy KIMBERLEE (obstructive sleep apnea) Social History Smoking Status: Never smoker second hand exposure: No alcohol intake: current substance use type: denies use current occupational status: ret
--- NOTE | 2022-08-03 15:00 | PC.NURSE ---
Ang GOMEZ and I went in to clean patient up and put patient in a clean gown.
[2022-08-03 15:04] LABS: Chloride 106 mmol/L (98-107); Potassium 3.6 mmoL/L (3.5-5.1); Sodium 138 mmol/L (136-145)
[2022-08-03 15:06] LABS: Basophils # 0.1 K/mm3 (0-0.2); Basophils % 1.3 % (0.1-2.0); Eosinophils # 0.2 K/mm3 (0.0-0.4); Eosinophils % 2.7 % (0.1-12.0); Hematocrit 46.3 % (37.0-47.0); Hemoglobin 14.9 g/dL (12.2-16.2); Lymphocytes # 1.6 K/mm3 (0.7-4.5); Lymphocytes % 26.9 % (10-50); Mean Corpuscular HGB Conc 32.2 g/dL (31.8-35.4); Mean Corpuscular Hemoglobin 28.9 pg (27.0-31.2); Mean Corpuscular Volume 89.7 fl (81-99); Mean Platelet Volume 7.8 fl (7.4-10.4); Monocytes # 0.6 K/mm3 (0.1-1.0); Monocytes % 10.1 % (1.7-9.3); Neutrophils # 3.5 K/mm3 (1.8-7.8); Platelet Count 325 K/mm3 (142-424); Red Blood Count 5.16 M/mm3 (4.20-5.40); Red Cell Distribution Width 14.5 % (11.5-17.5)
[2022-08-03 15:07] LABS: Alanine Aminotransferase 25 U/L (12-78); Albumin Level 4.2 g/dl (3.5-5.0); Albumin/Globulin Ratio 1.3 (1.1-1.8); Alkaline Phosphatase 85 U/L (38-126); Anion Gap 10.6 mEq/L (5-15); Aspartate Amino Transferase 38 U/L (14-36); Bilirubin,Total 0.6 mg/dl (0.2-1.3); Blood Urea Nitrogen 12 mg/dl (7-17); Carbon Dioxide 25 mmol/L (22.0-30.0); Estimated Glomerular Filt Rate 48 ml/min (>60); GFR (African American) 58 ML/MIN (>60); Globulin 3.2 g/dL (1.3-3.2); Glucose 93 mg/dl (74-100); Total Protein,Serum 7.4 g/dl (6.3-8.2)
[2022-08-03 15:08] LABS: Calcium 9.3 mg/dl (8.4-10.2)
--- NOTE | 2022-08-03 15:08 | ECG_ITS ---
APPROVED REPORT Exam: Resting ECG HR:65 bpm ECG Measurements Heart Rate 65 AXES IA 196 P 52 QRSd 96 QRS -24 QT 438 T 16 QTc 449 Conclusion SINUS RHYTHM Normal ecg UNCONFIRMED REPORT Electronically signed by : Israel Pappas MD 08/04/2022 21:13:37
[2022-08-03 15:13] LABS: Activated Partial Thrombo Time 26.6 seconds (22.8-30.6); INR 1.06 (0.9-1.1); Prothrombin Time 11.4 seconds (10.1-12.5)
[2022-08-03 15:22] LABS: Troponin I < 0.01 ng/ml (0.00-0.034)
[2022-08-03 15:36] LABS: Coronavirus 19, PCR Not Detected (NotDetected); Influenza A, PCR Not Detected (NotDetected); Influenza B, PCR Not Detected (NotDetected); Microscopic, Urine URINE MICROSCOPIC (MICROSCOPIC)
[2022-08-03 15:40] LABS: Appearance,Urine CLEAR (Clear); Bilirubin,Urine Negative (Negative); Blood, Urine Negative (Negative); Color,Urine YELLOW (Yellow); Glucose,Urine (UA) Negative (Negative); Ketones,Urine Negative (Negative); Leukocyte Esterase,Urine Negative (Negative); Nitrate,Urine Negative (Negative); Protein,Urine 1+ (Negative); Specific Gravity, Urine >= 1.030 (1.005-1.030); Urobilinogen,Urine 0.2 EU/dl (0.2)
[2022-08-03 15:50] LABS: Bacteria,Urine Trace /lpf; WBC,Urine Occasional #/hpf (0-3)
[2022-08-03 15:53] LABS: POC Glucose,Bedside 90 (70-110)
--- NOTE | 2022-08-03 15:58 | PC.NURSE ---
last known normal for pt was 1344
== END 2022-08-03 18:01 | disposition home or self-care (01) ==
PROVIDERS: Emergency Provider Emergency Medicine; PCP Family Medicine
DX: R55 Syncope and collapse (principal); R51.9 Headache, unspecified; R41.82 Altered mental status, unspecified; Z79.01 Long term (current) use of anticoagulants; Z20.822 Contact with and (suspected) exposure to COVID-19
CPT/HCPCS: 70450; 71045; 80053; 81001; 82962; 84484; 85025; 85610; 85730; 93005; 96374; 96375; 99285; C9803; J2405; U0003; U0005

== ENCOUNTER → 2022-08-13 10:28 | Outpatient (CLI) | payer MEDICARE, SELFPAY ==
--- NOTE | 2022-08-13 10:32 | CA_ITS ---
APPROVED REPORT EXAM: Comprehensive 2D, Doppler, and color-flow Echocardiogram [employer] Coordinator: Evelyn Alexandre RDCS Ht: 5 ft 10 in Wt: 220lbs BSA: 2.17 BP: 175/91 mmHg Indications: SYNCOPE H/O AF 2D Dimensions LVOT 1.53 cm (M/F) 1.5-2.5 M-Mode Dimensions RVDd 3.48 cm (0.9-2.6) LA Diam 3.92 cm (1.9-4.0) LVDd 4.16 cm (3.5-5.7) Ao Diam 3.32 cm (2.0-3.7) LVDs 3.40 cm (3.5-5.7) IVSd 1.10 cm (0.6-1.1) PWd 1.02 cm (0.6-1.1) EF (Teich) 38.30% FS 18.30% EDV (Teich) 76.80 mL ESV (Teich) 47.40 mL LV Diastology E Decel Time 223.00 (160-240 msec) E/A Ratio 0.4 MED E' 6.70 (< 7 cm/sec) E'/MED E' Ratio 5.67 (>14) LAT E' 4.80 (<10 cm/sec) E/LAT E' Ratio 7.92 (>14) Aortic Valve LVOT Max 85.00 (70-110 cm/s) LVOT VTI 13.94 cm AoV Peak Darshan. 134.00 (50-130 cm/s) AO Peak GR. 7.30 mmHg AO Mean GR. 3.60 (<5 mmHg) AO VTI 20.58 (18-25 cm) MATTHEW (VTI) 1.25 (2.5-4.5 cm2) Mitral Valve MV E Max Darshan. 38.00 (40-130 cm/s) MV A Velocity 87.00 (40-130 cm/s) E/A Ratio 0.44 MV Decel. Time 223.00 (160-240 ms) MV PHT 65.00 ms Left Ventricle Technically difficult study because of the patient factors and poor acoustic windows. Left atrium is mildly enlarged, left ventricle is normal size, estimated ejection fraction 55% with no regional wall motion abnormality, grade 1 diastolic dysfunction seen without tissue Doppler evidence of raise left atrial pressure. Right Ventricle Right atrium and right ventricular mildly enlarged with normal contractility. Aortic Valve Aortic valve is minimally thickened and fibrosed there is no aortic stenosis or aortic insufficiency. Mitral Valve Mitral valve leaflets are minimally thickened, there is no mitral stenosis, there is mild mitral regurgitation. Tricuspid Valve Tricuspid valve grossly normal, there is mild tricuspid regurgitation. Tricuspid regurgitation jet velocity is inadequate for calculation of the right ventricular systolic pressure. Pulmonic Valve Pulmonic valve is poorly visualized. Great Vessels Aortic root is normal size. Inferior vena cava is poorly visualized. Pericardium No significant pericardial effusion noted. Conclusion 1. Mild biatrial enlargement, normal left ventricular size, estimated ejection fraction 55% with no regional wall motion abnormality, grade 1 diastolic dysfunction seen without tissue Doppler evidence of late left atrial pressure. 2. Mildly enlarged right ventricle with normal contractility. 3. Mild mitral and tricuspid regurgitation. 4. No significant pericardial effusion noted. 5. Inferior vena cava is poorly visualized. Electronically signed by : Kevin James MD 08/13/2022 13:10:47
--- NOTE | 2022-08-13 10:32 | CA_ITS ---
FINAL REPORT TECHNIQUE: Color Doppler, duplex Doppler and oviedo scale sonography of the bilateral neck arterial vasculature was performed. Velocities were measured in the carotid arteries. Stenosis evaluation based on the validated velocity criteria. CLINICAL HISTORY: syncopal episode, dizziness FINDINGS: The peak systolic velocity of the right common carotid artery is 56 cm/s. The peak systolic velocity of the right internal carotid artery is 73 cm/s and end diastolic velocity 23 cm/s. The ICA/CCA ratio is 1.3. No significant plaque is present. The right external carotid artery is patent. The right vertebral artery is patent with antegrade flow. The peak systolic velocity of the left common carotid artery is 73 cm/s. The peak systolic velocity of the left internal carotid artery is 94 cm/s and end diastolic velocity 29 cm/s. The ICA/CCA ratio is 1.3. No significant plaque is present. The left external carotid artery is patent.The left vertebral artery is patent with antegrade flow. Note is made of enlarged right thyroid lobe with nodules. IMPRESSION: Less than 50% bilateral carotid stenosis. Bilateral patent vertebral arteries with antegrade flow. If indicated, CTA or MRA could further evaluate. Reviewed, Interpreted and Dictated by Beatriz Odom MD Transcribed by Bisi Curry Authenticated and [facility]
== END ==
PROVIDERS: PCP Family Medicine; Visit Provider Family Medicine
DX: R55 Syncope and collapse (principal)
CPT/HCPCS: 93306; 93880

== ENCOUNTER 2022-09-01 14:17 | Emergency (ER) | payer MEDICARE, OTHER, SELFPAY ==
[2022-09-01 14:19] VITALS: BP 135/80; PULSE 74; RESP 18; TEMP 36.8; O2SAT 92; BMI 31.1
--- NOTE | 2022-09-01 14:29 | HMH.EDGENADL ---
Discharge Plan Disposition Patient Disposition: Home, Self-Care Prescriptions Prescriptions: No Action Adult Probiotic 3 billion cell capsule 3,000 mmu cells PO DAILY vitamin B complex [B Complex-Vitamin B12] tablet 1 tab PO DAILY levothyroxine 150 mcg tablet 150 mcg PO DAILY zaleplon 5 mg capsule 5 mg PO DAILY Qty: 20 3RF Rx Instructions: 5 mg po qhs prn insomnia cholecalciferol (vitamin D3) 1,000 unit capsule 1,000 unit PO DAILY leflunomide 20 mg tablet 20 mg PO DAILY furosemide 20 mg tablet 20 mg PO DAILY Qty: 30 5RF metoprolol succinate [Toprol XL] 25 mg tablet extended release 24 hr 25 mg PO DAILY Qty: 30 5RF Rx Instructions: at bedtime doxepin 10 mg capsule 10 mg PO QHS Qty: 30 1RF meloxicam 15 MG tablet 15 mg PO DAILY sertraline 100 MG tablet 100 mg PO DAILY Label Comments: hydroxychloroquine 200 MG tablet 200 mg PO DAILY warfarin 5 MG tablet 7.5 mg PO Q48H warfarin 5 MG tablet 5 mg PO Q48H Referrals Follow up/Referrals: Tyson Bhakta MD [Primary Care Provider] - See instructions Activity Restrictions/Add. Instructions Additional Instructions/Restrictions: Return with any changes in mental status or other concerns. Clinical Impressions Clinical Impression: Minor head injury Discharge ED Provider: Cachoror Godfrey General Adult HPI General Chief complaint: Fall Stated complaint: AO 09/01 1330, right side face, right knee pain Time Seen by Provider: 09/01/22 14:29 History of Present Illness HPI narrative: Patient is a 76-year-old female presenting with a fall on SCL. States she is on [employer] for atrial fibrillation. Was walking today by herself when she tripped on uneven pavement fell hit her right knee and the right side of her face. She denies any pain currently denies any neck pain denies any headache denies any changes in mental status. She is accompanied by family member states she is at her mental baseline. States that her right knee has a small abrasion but has no pain or difficulty with range of motion or bearing weight. Mainly came to evaluate her head and brain. Related Data Home Medications Medication Instructions Recorded Confirmed hydroxychloroquine 200 mg tablet 200 mg PO DAILY Arthritis 08/05/17 07/18/20 sertraline 100 mg tablet 100 mg PO DAILY mood 08/05/17 07/18/20 meloxicam 15 mg tablet 15 mg PO DAILY Arthritis 08/18/17 07/18/20 lactobacillus combination no.8 3 3,000 mmu cells PO DAILY 06/10/18 07/18/20 billion cell capsule (Adult Probiotic) vitamin B complex (B 1 tab PO DAILY 06/10/18 07/18/20 Complex-Vitamin B12 tablet) cholecalciferol (vitamin D3) 25 1,000 unit PO DAILY 12/23/18 07/18/20 mcg (1,000 unit) capsule leflunomide 20 mg tablet 20 mg PO DAILY 12/23/18 07/18/20 levothyroxine 150 mcg tablet 150 mcg PO DAILY 07/07/19 07/18/20 warfarin 5 mg tablet 5 mg PO Q48H thinner 12/05/19 07/18/20 warfarin 5 mg tablet 7.5 mg PO Q48H THINNER 12/05/19 07/18/20 Previous Rx's Medication Instructions Recorded furosemide 20 mg tablet 20 mg PO DAILY FLUID RETENTION #30 11/17/19 tabs metoprolol succinate 25 mg 25 mg PO DAILY #30 tabs 11/17/19 tablet,extended release 24 hr (Toprol XL) doxepin 10 mg capsule 10 mg PO QHS #30 caps 02/01/20 zaleplon 5 mg capsule 5 mg PO DAILY insomnia #20 caps 03/14/20 Allergies Allergy/AdvReac Type Severity Reaction Status Date / Time erythromycin base Allergy Mild Verified 07/18/20 11:07 promethazine Allergy Mild Verified 07/18/20 11:07 Sulfa (Sulfonamide Allergy Mild Rash Verified 07/18/20 11:07 Antibiotics) [facility] Disclaimer: The information contained in this section may have been updated after the patient was seen, as this information can be updated by other users. 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
--- NOTE | 2022-09-01 14:34 | CT_ITS ---
FINAL REPORT CLINICAL HISTORY: fall on eliquis FINDINGS: Axial images of the head were obtained without contrast. Coronal and sagittal reformatted images were also obtained. This study was performed with techniques to keep radiation doses as low as reasonably achievable (ALARA). Individualized dose reduction techniques using automated exposure control or adjustment of mA and/or kV according to the patient''s size were employed. There is generalized age-appropriate atrophy. Periventricular low-attenuation areas are seen consistent with moderate chronic ischemic changes. Several small chronic bilateral lacunar infarcts are seen. There is no evidence of intracranial hemorrhage or mass. There is no evidence of acute infarct. There is no evidence of shift of the midline structures. No skull abnormality is seen on the bone window images. IMPRESSION: Atrophy and moderate periventricular chronic ischemic changes. No acute intracranial abnormality identified. Authenticated and [facility]
--- NOTE | 2022-09-01 14:39 | PC.NURSE ---
pt to ct
[2022-09-01 15:37] VITALS: BP 144/89; PULSE 63; O2SAT 94
[2022-09-01 15:48] VITALS: BP 140/84; PULSE 63; RESP 18; TEMP 36.8; O2SAT 94
== END 2022-09-01 15:48 | disposition home or self-care (01) ==
PROVIDERS: Emergency Provider Student in an Organized Health Care Education/Training Program; PCP Family Medicine
DX: S09.8XXA Other specified injuries of head, initial encounter (principal); I48.91 Unspecified atrial fibrillation; G47.39 Other sleep apnea; W01.0XXA Fall on same level from slipping, tripping and stumbling without subsequent striking against object, initial encounter; Z79.01 Long term (current) use of anticoagulants
CPT/HCPCS: 70450; 99284

== ENCOUNTER 2023-10-07 14:42 | Outpatient (CLI) | payer MEDICARE, SELFPAY ==
[2023-10-07 15:00] LABS: PHA INR Fingerstick 2.1 (0.9-1.1)
== END 2023-10-07 15:02 ==
LOC: ACC 14:43
PROVIDERS: PCP Family Medicine; Visit Provider Family Medicine
DX: Z51.81 Encounter for therapeutic drug level monitoring (principal); Z79.01 Long term (current) use of anticoagulants; I48.91 Unspecified atrial fibrillation
CPT/HCPCS: 85610; 99211; G0463

== ENCOUNTER 2023-10-21 14:40 | Outpatient (CLI) | payer MEDICARE, SELFPAY ==
[2023-10-21 15:34] LABS: PHA INR Fingerstick 1.7 (0.9-1.1)
== END 2023-10-21 15:37 ==
LOC: ACC 14:41
PROVIDERS: PCP Family Medicine; Visit Provider Family Medicine
DX: Z79.01 Long term (current) use of anticoagulants (principal); I48.21 Permanent atrial fibrillation; Z51.81 Encounter for therapeutic drug level monitoring
CPT/HCPCS: 85610; 99211; G0463

== ENCOUNTER 2023-10-23 11:23 | Outpatient (CLI) | payer MEDICARE, SELFPAY | END 2023-10-23 23:59 | disposition home or self-care (01) | LOC: RT 11:24 | PROVIDERS: PCP Family Medicine; Visit Provider Specialist | DX: G93.40 Encephalopathy, unspecified (principal); R41.3 Other amnesia | CPT/HCPCS: 94762 ==

== ENCOUNTER 2023-10-26 10:33 | Outpatient (CLI) | payer MEDICARE, SELFPAY ==
[2023-10-26 10:57] LABS: Basophils % 0.5 % (0.1-2.0); Eosinophils # 0.2 K/mm3 (0.0-0.4); Eosinophils % 3.1 % (0.1-12.0); Hemoglobin 14.8 g/dL (12.2-16.2); Lymphocytes # 0.9 K/mm3 (0.7-4.5); Lymphocytes % 15.2 % (10-50); Mean Corpuscular HGB Conc 32.1 g/dL (31.8-35.4); Mean Corpuscular Hemoglobin 30.1 pg (27.0-31.2); Mean Corpuscular Volume 93.6 fl (81-99); Mean Platelet Volume 7.4 fl (7.4-10.4); Monocytes # 0.4 K/mm3 (0.1-1.0); Monocytes % 6.7 % (1.7-9.3); Neutrophils # 4.4 K/mm3 (1.8-7.8); Neutrophils % 74.5 % (37.0-80.0); Platelet Count 307 K/mm3 (142-424); Red Blood Count 4.91 M/mm3 (4.20-5.40); Red Cell Distribution Width 14.1 % (11.5-17.5); White Blood Count 5.9 K/mm3 (4.8-10.8)
[2023-10-26 11:19] LABS: Chloride 107 mmol/L (98-107); Sodium 139 mmol/L (136-145)
[2023-10-26 11:20] LABS: Potassium 4.6 mmoL/L (3.5-5.1)
[2023-10-26 11:22] LABS: Alanine Aminotransferase 23 U/L (12-78); Albumin Level 4.1 g/dl (3.5-5.0); Albumin/Globulin Ratio 1.5 (1.1-1.8); Alkaline Phosphatase 121 U/L (38-126); Anion Gap 6.6 mEq/L (5-15); Aspartate Amino Transferase 35 U/L (14-36); Bilirubin,Total 0.6 mg/dl (0.2-1.3); Blood Urea Nitrogen 27 mg/dl (7-17); Calcium 9.8 mg/dl (8.4-10.2); Carbon Dioxide 30 mmol/L (22.0-30.0); Estimated Glomerular Filt Rate 48 ml/min (>60); GFR (African American) 58 ML/MIN (>60); Globulin 2.7 g/dL (1.3-3.2); Glucose 90 mg/dl (74-100); Total Protein,Serum 6.8 g/dl (6.3-8.2)
[2023-10-26 11:31] LABS: Erythrocyte Sedimentation Rate 11 mm/hr (0-30)
[2023-10-26 14:45] LABS: Thyroid Stimulating Hormone < 0.02 uIU/mL (0.465-4.68)
[2023-10-26 15:20] LABS: Vitamin B12 895 pg/mL (239-931)
[2023-10-26 15:35] LABS: Folate 8.67 ng/mL
[2023-10-27 14:02] LABS: Anti-Centromere B Antibodies <0.2 AI (0.0-0.9); Anti-DNA (DS) Ab Qn 4 IU/mL (0-9); Anti-Jo-1 <0.2 AI (0.0-0.9); Antichromatin Antibodies <0.2 AI (0.0-0.9); Antiscleroderma-70 Antibodies <0.2 AI (0.0-0.9); RNP Antibodies <0.2 AI (0.0-0.9); Rapid Plasma Reagin Ab Titer Non Reactive titer (NonRea<1:1); Sjogren's Anti-SS-A >8.0 AI (0.0-0.9); Sjogren's Anti-SS-B 0.4 AI (0.0-0.9)
[2023-10-28 15:10] LABS: Free T4 (Free Thyroxine) 1.43 ng/dl (0.78-2.19)
[2023-10-30 09:05] LABS: Anti-Centromere B Abs Charge YES; Anti-DNA (DS) Ab Charge YES; Anti-Jo-1 Charge YES; Antichromatin Abs Charge YES; Antinuclear Antibodies (ANA) Positive; Antiscleroderma-70 Abs Charge YES; RNP Antibodies Charge YES; Sjogren's Anti-SS-A Ab Charge YES; Sjogren's Anti-SS-B Ab Charge YES; Smith Antibodies Charge YES
== END 2023-10-26 23:59 | disposition home or self-care (01) ==
LOC: LAB 10:35
PROVIDERS: PCP Family Medicine; Visit Provider Specialist
DX: G93.40 Encephalopathy, unspecified (principal); R41.3 Other amnesia; I10 Essential (primary) hypertension; E03.9 Hypothyroidism, unspecified
CPT/HCPCS: 36415; 80053; 82565; 82607; 82746; 84439; 84443; 84520; 85025; 85651; 86038; 86225; 86235; 86593

== ENCOUNTER 2023-10-28 16:05 | Outpatient (CLI) | payer MEDICARE, SELFPAY ==
--- NOTE | 2023-10-28 16:06 | MR_ITS ---
FINAL REPORT TECHNIQUE: Multiplanar MR, without and with gadolinium enhancement CLINICAL HISTORY: Memory Loss 22 ML PROHANCE GIVEN FINDINGS: There is moderate atrophy. Periventricular white matter changes likely related to mild, chronic microvascular ischemic change. Diffusion sequences show no signal abnormality to indicate acute infarct. No mass, hemorrhage or edema is seen. Ventricles are normal. Major vascular flow voids are intact. Following contrast administration, no mass or abnormal enhancement is seen. IMPRESSION: Moderate atrophy with mild microvascular ischemic change. Otherwise, unremarkable Reviewed, Interpreted and Dictated by Fidel Burris MD Transcribed by Cristela Melvin Authenticated and [facility]
[2023-10-28] MEDS: SODIUM CHLORIDE 0.9% 10ML SYR (RAD ONLY) 10 ML IV (17:07)
[2023-10-28] MEDS: GADOTERIDOL INJ 17ML SYRINGE 22 ML IV (17:07)
== END 2023-10-28 23:59 | disposition home or self-care (01) ==
LOC: RAD 16:06
PROVIDERS: PCP Family Medicine; Visit Provider Specialist
DX: G93.40 Encephalopathy, unspecified (principal); R41.3 Other amnesia
CPT/HCPCS: 70553; A9576

== ENCOUNTER 2023-11-16 09:54 | Outpatient (CLI) | payer MEDICARE, SELFPAY ==
[2023-11-16 15:12] LABS: PHA INR Fingerstick 1.4 (0.9-1.1)
== END 2023-11-16 15:21 ==
LOC: ACC 09:55
PROVIDERS: PCP Family Medicine; Visit Provider Family Medicine
DX: Z79.01 Long term (current) use of anticoagulants (principal); Z51.81 Encounter for therapeutic drug level monitoring; I48.91 Unspecified atrial fibrillation
CPT/HCPCS: 85610; 99211; G0463

== ENCOUNTER 2024-01-14 14:45 | Outpatient (CLI) | payer MEDICARE, SELFPAY ==
[2024-01-14] MEDS: ALBUTEROL 0.083% 2.5 MG/3 ML NEB IH (15:49)
== END 2024-01-14 23:59 | disposition home or self-care (01) ==
LOC: RT 14:46
PROVIDERS: PCP Family Medicine; Visit Provider Specialist
DX: G47.34 Idiopathic sleep related nonobstructive alveolar hypoventilation (principal); R06.02 Shortness of breath
CPT/HCPCS: 94060; 94618; 94726; 94729; J7613